=== PATIENT | female | born 1985 ===

== ENCOUNTER 2020-06-11 12:35 | Outpatient (REF) | payer OTHER, SELFPAY ==
[2020-06-11 14:04] LABS: MANUAL DIFF FLAG NO
[2020-06-11 14:12] LABS: Basophils Percent Auto 0.7 % (0-2); Eosinophils Absolute Auto 0.2 X10*3/uL (0.0-0.4); Eosinophils Percent Auto 2.7 % (0-4); Hematocrit 41.3 % (37-47); Hemoglobin 13.5 g/dl (12.0-16.0); Imm Gran Abs Auto 0.02 X10*3/uL (0.00-0.03); Imm Gran Pct Auto 0.4 % (0.0-0.4); Lymphocytes Absolute Auto 1.5 X10*3/uL (1.2-4.9); Lymphocytes Percent Auto 27.1 % (20-40); Mean Corpuscular HGB Conc 32.7 g/dl (31.0-35.0); Mean Corpuscular Hemoglobin 30.5 pg (27.0-33.0); Mean Corpuscular Volume 93.2 fL (80-98); Mean Platelet Volume 11.2 fL (9.4-12.3); Monocytes Absolute Auto 0.4 X10*3/uL (0.1-1.2); Monocytes Percent Auto 7.1 % (2-11); Neutrophils Absolute Auto 3.5 X10*3/uL (2.0-8.3); Platelet Count 255 X10*3/uL (160-400); Red Blood Count 4.43 X10*6/uL (4.20-5.50); Red Cell Distribution Width 12.9 % (11.0-16.0); White Blood Count 5.7 X10*3/uL (4.8-10.8)
[2020-06-11 14:22] LABS: Estimated Average Glucose 103 mg/dL; Hemoglobin A1c % 5.2 %
[2020-06-11 14:46] LABS: Alanine Aminotransferase 14 U/L (0-31); Albumin Level 4.3 g/dL (3.5-5.0); Alkaline Phosphatase 37 U/L (39-117); Anion Gap 11 (12-20); Aspartate Amino Transferase 13 U/L (5-31); Bilirubin Total 0.7 mg/dL (0.0-1.0); Blood Urea Nitrogen 8 mg/dL (9-16); Calcium 8.7 mg/dL (8.4-10.2); Carbon Dioxide 26 mmol/L (22-29); Chloride 106 mmol/L (96-108); Cholesterol 130 mg/dL; Estimated Glomerular Filt Rate > 60; Glucose Fasting 98 mg/dL (60-99); HDL Cholesterol 45 mg/dL; LDL Cholesterol Calculated 73 mg/dl; Potassium 4.4 mmol/L (3.3-5.1); Sodium 139 mmol/L (135-145); Total Protein 6.9 g/dL (6.5-8.0); Triglycerides 60 mg/dL
[2020-06-11 14:54] LABS: TSH reflex Free T4 2.23 uIU/mL (0.32-4.0)
[2020-06-12 08:39] LABS: SARS COV2 IgG Negative (Negative)
== END 2020-06-11 12:36 | disposition home or self-care (01) ==
LOC: HO.HMGCLDS 12:35
PROVIDERS: PCP Internal Medicine; Visit Provider Internal Medicine
DX: Z00.01 Encounter for general adult medical examination with abnormal findings (principal); Z01.84 Encounter for antibody response examination; E66.01 Morbid (severe) obesity due to excess calories; J45.20 Mild intermittent asthma, uncomplicated; Z86.32 Personal history of gestational diabetes
CPT/HCPCS: 36415; 80053; 80061; 82306; 83036; 84443; 85025; 86769

== ENCOUNTER → 2020-06-18 11:40 | Outpatient (BNVA) | payer OTHER, SELFPAY | PROVIDERS: PCP Internal Medicine; Visit Provider Advanced Practice Midwife ==

== ENCOUNTER 2020-08-30 10:07 | Outpatient (REF) | payer OTHER, SELFPAY | END 2020-08-30 10:08 | disposition home or self-care (01) | LOC: HO.LAB 10:07 | PROVIDERS: PCP Internal Medicine; Visit Provider Obstetrics & Gynecology | DX: Z30.433 Encounter for removal and reinsertion of intrauterine contraceptive device (principal) | CPT/HCPCS: 58300; 58301 ==

== ENCOUNTER 2020-11-14 09:59 | Outpatient (REF) | payer OTHER, SELFPAY ==
[2020-11-15 03:04] LABS: CT PCR NOT DETECTED (Not Detect.); NG PCR NOT DETECTED (Not Detect.)
[2020-11-15 09:44] LABS: BV Int Neg Control Negative (Negative); BV Int Pos Control Positive (Positive)
[2020-11-18 16:37] LABS: HPV mRNA E6/E7 rflx Not Detected (Not Detected)
== END 2020-11-14 10:00 | disposition home or self-care (01) ==
LOC: HO.LAB 09:59
PROVIDERS: Visit Provider Advanced Practice Midwife
DX: Z01.419 Encounter for gynecological examination (general) (routine) without abnormal findings (principal); Z11.51 Encounter for screening for human papillomavirus (HPV); Z11.3 Encounter for screening for infections with a predominantly sexual mode of transmission; Z20.2 Contact with and (suspected) exposure to infections with a predominantly sexual mode of transmission; E66.01 Morbid (severe) obesity due to excess calories; Z97.5 Presence of (intrauterine) contraceptive device
CPT/HCPCS: 87480; 87491; 87510; 87591; 87624; 87660; 88142

== ENCOUNTER 2021-01-09 16:41 | Outpatient (REF) | payer OTHER, SELFPAY ==
[2021-01-09 18:31] LABS: IDNOW Serial# 9DD0AD1C; Strep A Nucleic Acid Negative (Negative)
== END 2021-01-09 16:42 | disposition home or self-care (01) ==
LOC: HO.LAB 16:41
PROVIDERS: Visit Provider Internal Medicine
DX: J02.9 Acute pharyngitis, unspecified (principal)
CPT/HCPCS: 36415; 87651

== ENCOUNTER 2021-01-21 10:05 | Outpatient (REF) | payer OTHER, SELFPAY ==
[2021-01-22 09:54] LABS: BV Int Neg Control Negative (Negative); BV Int Pos Control Positive (Positive)
== END 2021-01-21 10:06 | disposition home or self-care (01) ==
LOC: HO.LAB 10:05
PROVIDERS: Visit Provider Advanced Practice Midwife
DX: N76.0 Acute vaginitis (principal); B96.89 Other specified bacterial agents as the cause of diseases classified elsewhere; R10.2 Pelvic and perineal pain
CPT/HCPCS: 81003; 87480; 87510; 87660; 99212

== ENCOUNTER 2021-06-03 11:41 | Outpatient (REF) | payer OTHER, SELFPAY ==
--- NOTE | ~2021-06-03 | XR_ITS ---
EXAMINATION: XR CHEST CLINICAL INFORMATION: Shortness of breath COMPARISON: None TECHNIQUE: 2 views of the chest were obtained. FINDINGS: No significant abnormality is noted involving the heart, lungs, mediastinum, bony thorax or soft tissues. XR/XR chest 2V IMPRESSION: Unremarkable examination.
== END 2021-06-03 11:42 | disposition home or self-care (01) ==
LOC: HO.HMGCX 11:41
PROVIDERS: PCP Internal Medicine; Visit Provider Internal Medicine
DX: R06.02 Shortness of breath (principal)
CPT/HCPCS: 71046

== ENCOUNTER → 2021-07-09 09:03 | Outpatient (BNVA) | payer OTHER, SELFPAY | PROVIDERS: PCP Internal Medicine; Visit Provider Nurse Practitioner Family | DX: R40.0 Somnolence (principal); R06.83 Snoring; E66.01 Morbid (severe) obesity due to excess calories; Z68.42 Body mass index [BMI] 45.0-49.9, adult | CPT/HCPCS: 99202 ==

== ENCOUNTER → 2021-08-19 09:05 | Outpatient (REF) | payer OTHER, SELFPAY | LOC: HO.SL 09:05 | PROVIDERS: PCP Internal Medicine; Visit Provider Nurse Practitioner Family | DX: E66.01 Morbid (severe) obesity due to excess calories (principal); R06.83 Snoring; R40.0 Somnolence | CPT/HCPCS: 95806 ==

== ENCOUNTER → 2021-11-10 22:06 | Outpatient (REF) | payer OTHER, SELFPAY | LOC: HO.SL 22:06 | PROVIDERS: PCP Internal Medicine; Visit Provider Nurse Practitioner Family | DX: R40.0 Somnolence (principal) | CPT/HCPCS: 95810 ==

== ENCOUNTER 2021-11-19 10:49 | Outpatient (REF) | payer OTHER, SELFPAY ==
[2021-11-19 14:28] LABS: CT PCR NOT DETECTED (Not Detect.); NG PCR NOT DETECTED (Not Detect.)
[2021-11-20 09:19] LABS: BV Int Neg Control Negative (Negative); BV Int Pos Control Positive (Positive)
== END 2021-11-19 10:50 | disposition home or self-care (01) ==
LOC: HO.LAB 10:49
PROVIDERS: Visit Provider Advanced Practice Midwife
DX: Z11.3 Encounter for screening for infections with a predominantly sexual mode of transmission (principal)
CPT/HCPCS: 87480; 87491; 87510; 87591; 87660

== ENCOUNTER 2022-03-10 09:00 | Outpatient (RCR) | payer OTHER, SELFPAY | END 2022-04-21 15:33 | disposition home or self-care (01) | LOC: HO.PT 09:00 | PROVIDERS: PCP Internal Medicine; Visit Provider Advanced Practice Midwife | DX: N81.89 Other female genital prolapse (principal) | CPT/HCPCS: 97112; 97140; 97161 ==

== ENCOUNTER 2022-11-02 12:52 | Outpatient (AMB) | payer OTHER, SELFPAY ==
--- NOTE | 2022-11-02 14:12 | AM.OFFWIN_ITS ---
Intake Vital Signs 11/02/22 14:17 BP 118/74 Blood Pressure Location Rt brachial Position Sitting Pulse 85 Pulse Source Pulse Oximeter Pulse Oximetry (%) 98 Oxygen Delivery Method Room Air Intake Visit Reasons: EP, Fall, Bilateral Ankle Pain Intake Note: patient here because she had a fall on wednesday and tried to break her fall with the other leg and then she injured the other side. she states she had swelling afterwards but swelling has gone down, the last two days it has been very painful, whenever she steps and puts pressure of her left foot it feels like pins and needles, right foot is bothersome but not as bad as the left foot. Patient Tobacco Use Status: Never used Tobacco Allergies cat dander Allergy (Mild, Verified 11/02/22 14:51) unknown dog dander Allergy (Mild, Verified 11/02/22 14:51) unknown Seasonal Allergies Allergy (Mild, Verified 11/02/22 14:51) sneezing, runny nose Medication List - Last Reconciled 11/02/22 by Manoj Ruiz MD albuterol sulfate 90 mcg/actuation 1 inh inhalation QID PRN levonorgestrel (Mirena) intrauterine montelukast 10 mg PO DAILY sertraline 75 mg (1.5 x 50 mg) PO DAILY 30 days Do you need a note to return to daycare/school/sports/work: No HPI EP, Fall, Bilateral Ankle Pain HPI Details 37-year-old female presents to the office for a sick visit. Patient was at a green party over the weekend and was jumping. She accidentally twisted both her ankles. The left hurts more than the right ankle. She is walking with a limp. [facility] Medical History Anxiety and depression Difficulty sleeping Encounter for general adult medical examination with abnormal findings Encounter for screening laboratory testing for COVID-19 virus in asymptomatic patient Gestational diabetes Mild intermittent asthma Morbid obesity Plantar wart of right foot Surgical History Hx of hernia repair [place] teeth extracted Family History Father Hx of diabetes mellitus Family hx of hypertension Mental health disorder Mother Hx of diabetes mellitus Hypothyroidism Mental health disorder Sister Hx of diabetes mellitus Hypothyroidism Maternal Grandfather Mental health disorder Maternal Grandmother Mental health disorder Social History Housing: House Alcohol intake: current Alcohol intake frequency: a few times a month Patient Tobacco Use Status: Never used Tobacco e-Cigarette/Vaping Use: Never Used service: No Current occupational status: employed Gender identity: Female Female Reproductive History Menstrual Age of Menarche: 14 Physical Exam Vital Signs: Last Vital Signs Pulse 85 11/02/22 14:17 BP 118/74 11/02/22 14:17 Pulse Ox 98 11/02/22 14:17 Oxygen Delivery Method Room Air 11/02/22 14:17 Extrem Other: Right and left ankles: Left ankle is swollen. Pain on inversion and eversion. Right ankle appears normal. Full range of motion. Assessment & Plan Assessment & Plan Orders: Orders XR ankle LT min 3V Today S93.402A - Sprain of unspecified ligament of left ankle, initial encounter Patient Instructions: X-rays personally reviewed by me. Patient was advised anti-inflammatories. Keep the foot elevated. Note for work given. Coding Level of Care Code Est Pt Level 4 (35371) Diagnoses
[2022-11-02 14:17] VITALS: BP 118/74; PULSE 85; O2SAT 98
== END 2022-11-02 15:09 | disposition home or self-care (01) ==
PROVIDERS: PCP Internal Medicine; Visit Provider Internal Medicine
DX: M25.571 Pain in right ankle and joints of right foot (principal); M25.572 Pain in left ankle and joints of left foot
CPT/HCPCS: 99214

== ENCOUNTER 2022-11-02 14:48 | Outpatient (REF) | payer OTHER, SELFPAY ==
--- NOTE | ~2022-11-02 | XR_ITS ---
EXAMINATION: XR ANKLE, LEFT CLINICAL INFORMATION: Sprain of unspecified ligament of left ankle, initial encounter COMPARISON: None available. TECHNIQUE: AP, lateral, and mortise views of the left ankle. FINDINGS: There is marked soft tissue swelling over the lateral malleolus. No fracture. Alignment is anatomic. No erosions. Joint spaces are maintained. Large posterior plantar calcaneal spur is seen. XR/XR ankle LT min 3V IMPRESSION: No acute bony abnormality.
== END 2022-11-02 14:49 | disposition home or self-care (01) ==
LOC: HO.HMGCX 14:48
PROVIDERS: PCP Internal Medicine; Visit Provider Internal Medicine
DX: S93.402A Sprain of unspecified ligament of left ankle, initial encounter (principal)
CPT/HCPCS: 73610

== ENCOUNTER 2022-12-02 08:09 | Outpatient (AMB) | payer OTHER, SELFPAY ==
[2022-12-02 08:13] VITALS: BP 136/82; PULSE 105; TEMP 36.4; O2SAT 98; BMI 42.3
--- NOTE | 2022-12-02 08:13 | MHC.OFFWIV ---
Intake Vital Signs 12/02/22 08:13 Height 5 ft 2 in Weight 231 lb 4 oz BMI 42.3 BP 136/82 Blood Pressure Location Rt brachial Position Sitting Pulse 105 H Pulse Source Pulse Oximeter Temp 97.6 F Temp Source Oral Pulse Oximetry (%) 98 Oxygen Delivery Method Room Air Intake Visit Reasons: EP ?Cyst on Anus Intake Note: Pt is here today for possible cyst on anus. Ptstates its a burning feeling occurred 4 Days ago. Patient Tobacco Use Status: Never used Tobacco Allergies cat dander Allergy (Mild, Verified 12/02/22 08:15) unknown dog dander Allergy (Mild, Verified 12/02/22 08:15) unknown Seasonal Allergies Allergy (Mild, Verified 12/02/22 08:15) sneezing, runny nose HPI EP ?Cyst on Anus HPI Details 37-year-old female presents to the office for a sick visit. She is reporting some discomfort in the anal canal. No bleeding or mucus. [facility] Medical History Anxiety and depression Difficulty sleeping Encounter for general adult medical examination with abnormal findings Encounter for screening laboratory testing for COVID-19 virus in asymptomatic patient Gestational diabetes Mild intermittent asthma Morbid obesity Plantar wart of right foot Surgical History Hx of hernia repair [place] teeth extracted Family History Father Hx of diabetes mellitus Family hx of hypertension Mental health disorder Mother Hx of diabetes mellitus Hypothyroidism Mental health disorder Sister Hx of diabetes mellitus Hypothyroidism Maternal Grandfather Mental health disorder Maternal Grandmother Mental health disorder Social History Housing: House Alcohol intake: current Alcohol intake frequency: a few times a month Patient Tobacco Use Status: Never used Tobacco e-Cigarette/Vaping Use: Never Used service: No Current occupational status: employed Gender identity: Female Female Reproductive History Menstrual Age of Menarche: 14 Physical Exam Vital Signs: Last Vital Signs Temp 97.6 F 12/02/22 08:13 Pulse 105 H 12/02/22 08:13 BP 136/82 12/02/22 08:13 Pulse Ox 98 12/02/22 08:13 Oxygen Delivery Method Room Air 12/02/22 08:13 BMI result Body Mass Index 42.3 Other: SC exam: Minimal swelling outside the anal verge. Slightly tender to touch. Examination was done in the presence of a female medical pathology teacher. Assessment & Plan Assessment & Plan (1) Thrombosed external hemorrhoid: Code(s): K64.5 - Perianal venous thrombosis Plan: Perineal application of hydrocortisone cream. Symptoms should subside. Medications: New hydrocortisone 2.5% (Anusol-HC) 1 appl [place] BID-QID PRN 30 grams 0RF hemorrhoids Coding Level of Care Code Est Pt Level 3 (14871) Diagnoses Thrombosed external hemorrhoid K64.5
== END 2022-12-02 09:04 | disposition home or self-care (01) ==
LOC: HO.HMGWI 08:09
PROVIDERS: PCP Internal Medicine
DX: K64.5 Perianal venous thrombosis (principal)
CPT/HCPCS: 99213

== ENCOUNTER 2023-03-19 08:48 | Outpatient (AMB) | payer OTHER, SELFPAY ==
--- NOTE | 2023-03-19 09:41 | MHC.OFFWIV ---
Intake Vital Signs 03/19/23 09:42 Height 5 ft 2 in Weight 231 lb BMI 42.2 BP 122/80 Blood Pressure Location Rt brachial Position Sitting Pulse 99 Pulse Source Pulse Oximeter Temp 97.1 F Temp Source Temporal Artery Scan Pulse Oximetry (%) 100 Oxygen Delivery Method Room Air Intake Visit Reasons: EP, cough, sore throat ([phone]) Intake Note: Pt is here c/o cough and sore throat. Patient Tobacco Use Status: Never used Tobacco Allergies cat dander Allergy (Mild, Verified 03/19/23 09:41) unknown dog dander Allergy (Mild, Verified 03/19/23 09:41) unknown Seasonal Allergies Allergy (Mild, Verified 03/19/23 09:41) sneezing, runny nose Do you need a note to return to daycare/school/sports/work: No HPI HPI Comments History of Present Illness Details This is a 37-year-old female who presents to the office today for sick visit. Patient complaining of a persistent cough x3 weeks following a positive COVID test approximately 1 month ago. She states this cough is dry without sputum production. She reports some mild shortness of breath and some mild wheezing. She has a history of asthma and has been out of her inhalers. She also reports a sore throat and voice hoarseness x 3-4 days. She reports odynophagia but denies dysphagia. She denies any fevers or chills. [facility] Medical History Anxiety and depression Difficulty sleeping Encounter for general adult medical examination with abnormal findings Encounter for screening laboratory testing for COVID-19 virus in asymptomatic patient Gestational diabetes Mild intermittent asthma Morbid obesity Plantar wart of right foot Surgical History Hx of hernia repair [place] teeth extracted Family History Father Hx of diabetes mellitus Family hx of hypertension Mental health disorder Mother Hx of diabetes mellitus Hypothyroidism Mental health disorder Sister Hx of diabetes mellitus Hypothyroidism Maternal Grandfather Mental health disorder Maternal Grandmother Mental health disorder Social History Housing: House Alcohol intake: current Alcohol intake frequency: a few times a month Patient Tobacco Use Status: Never used Tobacco e-Cigarette/Vaping Use: Never Used service: No Current occupational status: employed Gender identity: Female Female Reproductive History Menstrual Age of Menarche: 14 Review of Systems Const All systems reviewed & are unremarkable except as noted in HPI and below Reports no additional complaints Eyes Reports no additional complaints ENT Reports no additional complaints Card Reports no additional complaints Resp Reports no additional complaints GI Reports no additional complaints Reports no additional complaints Musc Reports no additional complaints Skin/Breast Reports system reviewed and no additional complaints, except as documented Neuro Reports no additional complaints Psych Reports no additional complaints Endo Reports no additional complaints Philippe/Lymph Reports no additional complaints Aller/Immun Reports no additional complaints Physical Exam Vital Signs: Last Vital Signs Temp 97.1 F 03/19/23 09:42 Pulse 99 03/19/23 09:42 BP 122/80 03/19/23 09:42 Pulse Ox 100 03/19/23 09:42 Oxygen Delivery Method Room Air 03/19/23 09:42 BMI result Body Mass Index 42.2 Const Other: Vital signs reviewed. Constitutional: Non-toxic appearing. No acute distress. Well-developed and well-nourished. HEENT: Normocephalic and atraumatic. Tympanic membranes without erythema, edema, or bulging bilaterally. External auditory canals without erythema or edema bilaterally. Moist mucous membranes. No pharyngeal erythema or exudates. Skin: Warm and dry. No rashes or lesions noted. Neck: Full and painless range of motion. No cervical lymphadenopathy. Cardio: Regular rate and rhythm. No murmurs, gallops, or rubs. No lower extremity edema. No JVD. Pulmonary: No respiratory distress. No accessory muscle usage. Scant end-expiratory wheezing throughout. Gastrointestinal: Soft, nontender, and nondistended in all 4 quadrants. Normoactive bowel sounds in all 4 quadrants. Genitourinary: No CVA tenderness. Musculoskeletal: Normal range of motion in joints throughout the body. No deformity or other signs of injury. Neuro: Alert and oriented x4. Cranial nerves 2-12 grossly intact. No focal deficits appreciated. Psych: Normal mood and affect. Assessment & Plan Assessment & Plan (1) Acute asthmatic bronchitis: Code(s): J45.909 - Unspecified asthma, uncomplicated (2) Acute laryngitis: Code(s): J04.0 - Acute laryngitis Plan This is a 37-year-old female presenting to the office complaining of a persistent dry cough x3 weeks following a positive COVID test as well as sore throat and hoarseness x3 days. On physical examination, she has no posterior pharyngeal erythema or edema and she has no unilateral tonsillar swelling or evidence of peritonsillar abscess/mass/cellulitis. She has scant expiratory wheezing but she is otherwise in no acute respiratory distress without tripodding or stridor. History and physical most consistent with a post viral acute asthmatic bronchitis and acute laryngitis. Patient has been sent home on p.o. prednisone 40 mg daily x5 days, p.o. azithromycin 500 mg today followed by 250 mg daily x4 days, and a refill of her albuterol and fluticasone inhalers. Patient's vital signs are stable, physical exam is otherwise benign, and patient is overall nontoxic appearing. Recommended symptomatic management including rest, increased fluids, advil/tylenol for pain/fever, salt water gargles, hot tea with honey, and over the counter throat lozenges. Patient advised to follow up here or go to the emergency room for worsening/persistent symptoms. Patient verbalizes understanding and is in agreement the plan. Medications: New prednisone 40 mg (2 x 20 mg) PO DAILY 10 tabs 0RF azithromycin For 250 mg dose pack: take 500 mg today (day 1), then 250 mg for 4 days (days 2-5) PO 6 tabs 0RF fluticasone propionate 100 mcg/actuation (Flovent Diskus) 1 inh inhalation BID 60 ea 0RF Refilled albuterol sulfate 90 mcg/actuation 1 inh inhalation QID PRN 6.7 grams 1RF shortness of breath or wheezing Coding Level of Care Code Est Pt Level 3 (57433) Diagnoses Acute asthmatic bronchitis J45.909 Acute laryngitis J04.0
[2023-03-19 09:42] VITALS: BP 122/80; PULSE 99; TEMP 36.2; O2SAT 100; BMI 42.2
== END 2023-03-19 10:41 | disposition home or self-care (01) ==
PROVIDERS: PCP Internal Medicine; Visit Provider Physician Assistant Medical
DX: J45.909 Unspecified asthma, uncomplicated (principal); J04.0 Acute laryngitis
CPT/HCPCS: 99213

== ENCOUNTER 2023-04-16 10:16 | Outpatient (REF) | payer OTHER, SELFPAY ==
[2023-04-21 12:43] LABS: CT PCR NOT DETECTED (Not Detect.); NG PCR NOT DETECTED (Not Detect.)
== END 2023-04-16 10:17 | disposition home or self-care (01) ==
LOC: HO.LNP 10:16
PROVIDERS: PCP Internal Medicine; Visit Provider Advanced Practice Midwife
DX: Z01.419 Encounter for gynecological examination (general) (routine) without abnormal findings (principal); N92.1 Excessive and frequent menstruation with irregular cycle; N81.89 Other female genital prolapse; E66.01 Morbid (severe) obesity due to excess calories; Z68.41 Body mass index [BMI] 40.0-44.9, adult; Z20.2 Contact with and (suspected) exposure to infections with a predominantly sexual mode of transmission; Z11.3 Encounter for screening for infections with a predominantly sexual mode of transmission; Z97.5 Presence of (intrauterine) contraceptive device
CPT/HCPCS: 0353U; 99395

== ENCOUNTER 2023-04-16 10:16 | Outpatient (AMB) | payer OTHER, SELFPAY ==
--- NOTE | 2023-04-16 10:18 | MHC.OFFVIS ---
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 Intake Note: periods are long lasting Associate Account Director Required: No Information Interpreted: non-clinical & clinical Side Hemmer: Side Hemmer Present (Kristin) Allergies cat dander Allergy (Mild, Verified 04/16/23 10:20) unknown dog dander Allergy (Mild, Verified 04/16/23 10:20) unknown Seasonal Allergies Allergy (Mild, Verified 04/16/23 10:20) sneezing, runny nose Medication List - Last Reconciled 04/16/23 by Nimisha Conrad CNM albuterol sulfate 90 mcg/actuation 1 inh inhalation QID PRN azithromycin For 250 mg dose pack: take 500 mg today (day 1), then 250 mg for 4 days (days 2-5) PO fluticasone propionate 110 mcg/actuation (Flovent HFA) 1 puff inhalation BID hydrocortisone 2.5% (Anusol-HC) 1 appl [place] BID-QID PRN levonorgestrel (Mirena) intrauterine montelukast 10 mg PO DAILY sertraline 75 mg (1.5 x 50 mg) PO DAILY 30 days Is last menstrual period known: Yes Last menstrual period: 03/26/23 Post menopausal: No HPI 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 She does seem to get long jann periods but they are not heavy and she does have spotting in between so she does end up wearing panty liners to protect her clothing because of that she feels she is doing very well this year she has been in a relationship for about a year and she has been getting lots of tattoos in this year she has got about 10 new ones. She shares custody with her ex for her children. [facility] Medical History Anxiety and depression Difficulty sleeping Plantar wart of right foot Encounter for screening laboratory testing for COVID-19 virus in asymptomatic patient Encounter for general adult medical examination with abnormal findings Morbid obesity Gestational diabetes Mild intermittent asthma Surgical History [place] teeth extracted Hx of hernia repair Family History Father Hx of diabetes mellitus Family hx of hypertension Mental health disorder Mother Hx of diabetes mellitus Hypothyroidism Mental health disorder Sister Hx of diabetes mellitus Hypothyroidism Maternal Grandfather Mental health disorder Maternal Grandmother Mental health disorder Social History Housing: House Alcohol intake: current Alcohol intake frequency: a few times a month Patient Tobacco Use Status: Never used Tobacco e-Cigarette/Vaping Use: Never Used service: No Current occupational status: employed Gender identity: Female Female Reproductive History Menstrual Age of Menarche: 14 Duration of menses: >10 days Date of last menstrual period: 03/26/23 control method: progestin IUCD Total pregnancies: 2 Full term: 2 Number of Living Children: 2 Date of last pap smear: 11/15/20 (negative) Physical Exam Vital Signs: BMI result Body Mass Index 42.1 Const General: healthy appearing, comfortable, no acute distress, well developed and alert Nutritional Appearance: average body habitus Orientation/consciousness: patient oriented x3 Limitations: no limitations HEENT Head: Yes normocephalic Neck Neck: Yes normal visual inspection Thyroid: Thyroid normal Chest Chest palpation & inspection: normal inspection of the chest Breast/axilla inspection: normal inspection of the breasts and normal inspection of the axillae Breast/axilla palpation: normal palpation of the breasts and normal palpation of the axillae Resp Effort & Inspection: normal respiratory effort GI Inspection: Yes normal to inspection, No Abdominal wall edema and No distended Palpation (GI): Soft to palpation and nontender Other: Normal external exam vagina pink and moist there is some mucousy spotting consistent with a Mirena IU S and some cervical friability multiparous cervix with Mirena strings easily visible cervix long close thick mobile firm uterus nontender midposition patient has weak tone with Kegel but was able to do a couple of Kegel's with great concentrated effort reviewed Kegel exercise and recommend she do them several times a day as she learned in physical therapy I did also offer to re refer her but she is going to try to practice which she was given General: Yes bladder normal to palpation External Female Exam: normal external appearance and normal appearance of the urethra Speculum Exam - Vagina: normal appearance of the vagina, normal palpation and normal vaginal discharge Speculum Exam - Cervix: normal appearance of the cervix, normal palpation and nontender Bimanual exam- vagina & uterus: normal bimanual exam, normal palpation, uterine size normal, bladder normal to palpation, consistency normal, normal palpation, uterine mobility normal, uterine shape normal, No Cervical tenderness present, non-tender and no cervical motion tenderness Bimanual Exam- Adnexa, other: normal adnexae, no masses, normal and No adnexal tenderness Neuro General: patient oriented x3 Assessment & Plan Assessment & Plan (1) Presence of 52 mg levonorgestrel-releasing intrauterine device (IUD): Code(s): Z97.5 - Presence of (intrauterine) contraceptive device (2) Pelvic floor weakness: Code(s): N81.89 - Other female genital prolapse (3) Potential exposure to STD: Code(s): Z20.2 - Contact with and (suspected) exposure to infections with a predominantly sexual mode of transmission (4) Obesity, morbid, BMI 40.0-49.9: Code(s): E66.01 - Morbid (severe) obesity due to excess calories (5) Well woman exam with routine gynecological exam: Code(s): Z01.419 - Encounter for gynecological examination (general) (routine) without abnormal findings (6) Breakthrough bleeding associated with intrauterine device (IUD): Code(s): N92.1 - Excessive and frequent menstruation with irregular cycle; Z97.5 - Presence of (intrauterine) contraceptive device (7) Encounter for preconception consultation: Code(s): Z31.69 - Encounter for other general counseling and advice on procreation Plan -----Discussed in this visit the following: healthy balanced diet, regular and consistent exercise, getting recommended health screens, doing the best she can for her particular health concerns, kegel exercises, pap smear screening and followup recommendations, mammography screening and SBE, normal changes in cycles in her life stage--- .----I reviewed available options for Control Methods and their associated side effect profiles. In particular, we discussed the method most of interest to her. I reviewed all the methods that she has used reviewed the irregular bleeding on her Mirena and the possibilities for management including removal and trying other methods such is progestin only pills or ParaGard IUD but she is for now is going to stick with this and think about her consideration for of future . We discussed at 37 and also increased risks of issues going forward as well as conception after 35 and increased risks of Down syndrome and miscarriage in complications. Discussed return to her baseline fertility an menses drill cycle after removal of the Mirena and that it can take anywhere from immediate to year though at the same time after age 37 there can be some diminishing fertility moving forward as well. She is taking multivitamins as well as other vitamins. She is endeavoring to eat very well and lose weight it in a natural way using a ketogenic diet and exercise. She is losing overall though she has gained a little bit at [place]. She is going to get back on track after the holidays. For now she will keep the Mirena in and consider options going forward the bleeding that she gets for 7-10 days is not very heavy at all at most she wears a couple of pads in a day at its heaviest she does get the spotting in between. She has never had an abnormal Pap smear and no concerns about STDs but we did testing for STIs her last Pap smear was in 2020 and it was negative in normal so we did not have an indication to do another 1 today. We will see her in 1 year Also reviewed any other potential issues she does have some thinning of her hair on her right episcopalian more than on her left she has says it was from pulling her hair very tight as a teenager and it has been discussed with her other care providers and it she does not have alopecia areata. Did discuss possible autoimmune connections and thyroid connections if that were the case but it is not. Orders: Orders Bacterial Vaginosis Panel Today Z20.2 - Contact with and (suspected) exposure to infections with a predominantly sexual mode of transmission CT NG by PCR Today Z20.2 - Contact with and (suspected) exposure to infections with a predominantly sexual mode of transmission Coding Level of Care Code Est Pt Prev Care 18-39y(32742) Diagnoses Presence of 52 mg levonorgestrel-releasing intrauterine device (IUD) Z97.5 Pelvic floor weakness N81.89 Potential exposure to STD Z20.2 Obesity, morbid, BMI 40.0-49.9 E66.01 Well woman exam with routine gynecological exam Z01.419 Breakthrough bleeding associated with intrauterine device (IUD) N92.1; Z97.5 Encounter for preconception consultation Z31.69
[2023-04-16 10:19] VITALS: BP 130/82; BMI 42.1
== END 2023-04-16 11:19 | disposition home or self-care (01) ==
LOC: HO.HWS 10:16
PROVIDERS: PCP Internal Medicine; Visit Provider Advanced Practice Midwife
DX: Z01.419 Encounter for gynecological examination (general) (routine) without abnormal findings (principal); Z97.5 Presence of (intrauterine) contraceptive device; N81.89 Other female genital prolapse; Z20.2 Contact with and (suspected) exposure to infections with a predominantly sexual mode of transmission; E66.01 Morbid (severe) obesity due to excess calories; N92.1 Excessive and frequent menstruation with irregular cycle; Z31.69 Encounter for other general counseling and advice on procreation
CPT/HCPCS: 99395

== ENCOUNTER 2023-09-23 14:36 | Outpatient (AMB) | payer OTHER, SELFPAY ==
--- NOTE | 2023-09-23 14:38 | MHC.PC.OV ---
Vital Signs 09/23/23 14:39 Height 5 ft 2 in Weight 242 lb BMI 44.3 BP 114/76 Blood Pressure Location Rt brachial Position Sitting Pulse 72 Pulse Source Pulse Oximeter Pulse Oximetry (%) 98 Oxygen Delivery Method Room Air Intake Visit Reasons: Pain right side of hips Intake Note: Pt here c/o rt hip pain Allergies cat dander Allergy (Mild, Verified 10/28/23 02:44) unknown dog dander Allergy (Mild, Verified 10/28/23 02:44) unknown Seasonal Allergies Allergy (Mild, Verified 10/28/23 02:44) sneezing, runny nose Medication List - Last Reconciled 10/28/23 by Emily Little MD albuterol sulfate 90 mcg/actuation 1 inh inhalation QID PRN fluticasone propionate 110 mcg/actuation (Flovent HFA) 1 puff inhalation BID levonorgestrel (Mirena) intrauterine montelukast 10 mg PO DAILY sertraline 50 mg PO DAILY 30 days Tobacco use date assessed: 09/23/23 Dental Screening Dental Screen Date: 09/23/23 Did you have a dental visit in the last 12 months?: Yes Did you have a dental problem in the last 6 months where you did not have access to dental care?: No Was dental information given to patient?: Patient has dentist HPI Pain right side of hips HPI Details 38-year-old lady here today complaining of recurrent pain in her right hip joint, nonradiating., aggravated by prolonged walking standing going up and down stairs. She has lost weight in the past but started gaining it back again. No history of trauma or strenuous exertion. Has just been taking [id number] NSAIDs and Tylenol which affords only temporary relief. No accompanying urinary or stool incontinence, no weakness in lower extremities, no numbness or tingling. [facility] Medical History (Updated 09/23/23 @ 15:11 by Emily Little MD) Chronic right sacroiliac joint pain Anxiety and depression Difficulty sleeping Plantar wart of right foot Encounter for screening laboratory testing for COVID-19 virus in asymptomatic patient Encounter for general adult medical examination with abnormal findings Morbid obesity Gestational diabetes Mild intermittent asthma Surgical History [place] teeth extracted Hx of hernia repair Family History Father Hx of diabetes mellitus Family hx of hypertension Mental health disorder Mother Hx of diabetes mellitus Hypothyroidism Mental health disorder Sister Hx of diabetes mellitus Hypothyroidism Maternal Grandfather Mental health disorder Maternal Grandmother Mental health disorder Social History Housing: House Alcohol intake: current Alcohol intake frequency: a few times a month Patient Tobacco Use Status: Never used Tobacco e-Cigarette/Vaping Use: Never Used service: No Current occupational status: employed Current occupational exposures/hazards: No Gender identity: Female Female Reproductive History Menstrual Age of Menarche: 14 Questionnaire PHQ-9 Over the last 2 weeks, how often have you been bothered by any of the following problems? 1. Little interest or pleasure in doing things: not at all 2. Feeling down, depressed, or hopeless: not at all 3. Trouble falling or staying asleep, or sleeping too much: not at all 4. Feeling tired or having little energy: not at all 5. Poor appetite or overeating: not at all 6. Feeling bad about yourself - or that you are a failure or have let yourself or your family down: not at all 7. Trouble concentrating on things, such as reading the newspaper or watching television: not at all 8. Moving or speaking so slowly that other people could have noticed. Or the opposite - being so fidgety or restless that you have been moving around a lot more than usual: not at all 9. Thoughts that you would be better off or of hurting yourself in some way: not at all Total score: 0 Depression Screening Interpretation: Negative Depression Screening Done: Yes 93618 - PHQ-9 Billing: Yes Source: Developed by Drs. Nick Mata, Jenniffer Bangura, Damon Olvera and colleagues, with an educational alfred from [employer]. Thrive Questionnaire Date Thrive assessed: 09/23/23 I am a: Patient What is your living situation today?: I have a steady place to live Within the past 12 months, did the food you bought not last and you didn't have the money to get more?: Never true Within the past 12 months, did you worry whether your food would run out before you got money to buy more?: Never true Do you have trouble paying for medicines?: No Do you have trouble getting transportation to medical appointments?: No Do you have trouble paying your heating and electricity bill?: No Do you have trouble taking care of your child, family member or friend?: No Do you have trouble with day-to-day activities such as bathing, preparing meals, shopping, managing finances, etc.?: No Are you currently unemployed and looking for a job?: No Are you interested in more education?: No Please select the resources that you would like help with: None Currently or been in a relationship where the following occur: no concerns reported THRIVE Score: 0 AUDIT C Alcohol Use Questionnaire (AUDIT-C) 1. How often do you have a drink containing alcohol?: 2-4 times a month 2. How many drinks containing alcohol do you have on a typical day when you are drinking?: 3 or 4 3. How often do you have six or more drinks on one occasion?: Never Total Score: 3 Score Reviewed/Action Taken: Yes TOYA-7 AMB Questionnaire TOYA-7 Date TOYA - 7 assessed: 09/23/23 Feeling nervous, anxious, or on edge: 1 = Several days Not being able to stop or control worryin = Several days Worrying too much about different things: 2 = More than half the days Trouble relaxin = Not at all Being so restless that it is hard to sit still: 0 = Not at all Becoming easily annoyed or irritable: 0 = Not at all Feeling afraid as if something awful might happen: 1 = Several days Total TOYA-7 score (0-4 normal; 5-9 mild; 10-14 moderate; 15-21 severe): 5 Source: Developed by Drs. Nick Mata, Jenniffer Bangura, Damon Olvera and colleagues, with an educational alfred from [employer]. TOYA-7 Assessment Billing TOYA-7 Assessment Tool: TOYA-7 Assessment 74786 Review of Systems Const Denies fever(s), Denies headache(s) and Denies weakness Eyes Denies change in vision ENT Denies dizziness, Denies headache(s), Denies nasal congestion, Denies nasal discharge and Denies sore throat Card Denies chest pain, Denies lightheadedness, Denies palpitations and Denies dyspnea Resp Denies chest congestion, Denies cough, Denies dyspnea and Denies wheezing GI Denies abdominal pain, Denies change in bowel habits and Denies heartburn Denies urinary frequency, Denies dysuria and Denies urinary urgency Musc Reports as per HPI Neuro Denies dizziness, Denies headache(s) and Denies weakness Psych Reports no additional complaints Endo Denies polydipsia, Denies polyuria and Denies palpitations Philippe/Lymph Reports no additional complaints Aller/Immun Denies wheezing Physical exam (Primary Care) Vital Signs: Last Vital Signs Pulse 72 09/23/23 14:39 BP 114/76 09/23/23 14:39 Pulse Ox 98 09/23/23 14:39 Oxygen Delivery Method Room Air 09/23/23 14:39 BMI result Body Mass Index 44.3 BMI Assessment/Plan discussion: High BMI High, discussed plan: lifestyle, weight reduction, dietary and physical activity Tobacco/Smoking Status: Tobacco use Status Tobacco use date assessed 09/23/23 09/23/23 14:50 Patient Tobacco Use Status Never used Tobacco 09/23/23 14:50 e-Cigarette/Vaping Use Never Used 09/23/23 14:50 PHQ-9: PHQ-9 Score PHQ-9: Total score 0 09/23/23 15:17 Depression Screening Interpretation: Negative Thrive Assessment: Date of Thrive Assessment Date Thrive assessed 09/23/23 09/23/23 14:50 Currently or been in a relationship where the following occur: no concerns reported Const General: comfortable, no acute distress and alert Nutritional Appearance: obese morbidly obese Orientation/consciousness: patient oriented x3 Eyes General: appearance normal, both eyes and all related structures Neck Neck: Yes full ROM, Yes no lymphadenopathy and Yes supple Thyroid: Thyroid normal Resp Auscultation: clear to auscultation bilaterally Cardio Other: S1-S2 present regular rate and rhythm GI Palpation (GI): Soft to palpation, nontender and no guarding Auscultation: normal bowel sounds Back/Spine/Pelvis Back: No back tenderness Skin Other: Raised lesion on plantar aspect of right foot Neuro General: patient oriented x3 Extrem General: Yes full ROM, Yes no joint enlargement, Yes no pedal edema, Yes no calf tenderness and Yes normal gait Psych Appearance: grossly normal and well kempt Mental Status: mental status grossly normal Speech and movement: Normal speech and movement present Affect: normal affect Attitude: cooperative Thought process: Normal thought process present Assessment and Plan Assessment & Plan (1) Chronic right sacroiliac joint pain: Code(s): M53.3 - Sacrococcygeal disorders, not elsewhere classified; G89.29 - Other chronic pain Plan: X-ray of right hip and pelvis were, take ibuprofen as needed, weight loss strongly recommend (2) History of vitamin D deficiency: Code(s): Z86.39 - Personal history of other endocrine, nutritional and metabolic disease Plan: Ordered vitamin-D level check (3) History of gestational diabetes: Code(s): Z86.32 - Personal history of gestational diabetes Plan: Basic metabolic panel and hemoglobin A1c ordered Orders: Orders XR hip RT w PEL1V 09/23/23 M53.3 - Sacrococcygeal disorders, not elsewhere classified, G89.29 - Other chronic pain Hemoglobin A1c 09/23/23 Z13.1 - Encounter for screening for diabetes mellitus, O24.410 - Gestational diabetes mellitus in , diet controlled, Z86.39 - Personal history of other endocrine, nutritional and metabolic disease Basic Metabolic Panel Fasting 09/23/23 Z13.1 - Encounter for screening for diabetes mellitus, O24.410 - Gestational diabetes mellitus in , diet controlled, Z86.39 - Personal history of other endocrine, nutritional and metabolic disease Vitamin D 25-OH Total 09/23/23 Z13.1 - Encounter for screening for diabetes mellitus, O24.410 - Gestational diabetes mellitus in , diet controlled, Z86.39 - Personal history of other endocrine, nutritional and metabolic disease Coding Level of Care Code Est Pt Level 4 (09797) Diagnoses Chronic right sacroiliac joint pain M53.3; G89.29 History of vitamin D deficiency Z86.39 History of gestational diabetes Z86.32 Additional Codes TOYA-7 Assessment Billing - TOYA-7 Assessment Tool: TOYA-7 Assessment 36014 ([id number])
[2023-09-23 14:39] VITALS: BP 114/76; PULSE 72; O2SAT 98; BMI 44.3
== END 2023-09-23 15:16 | disposition home or self-care (01) ==
PROVIDERS: PCP Internal Medicine; Visit Provider Internal Medicine
DX: M53.3 Sacrococcygeal disorders, not elsewhere classified (principal); G89.29 Other chronic pain; Z86.39 Personal history of other endocrine, nutritional and metabolic disease; Z86.32 Personal history of gestational diabetes
CPT/HCPCS: 99214

== ENCOUNTER 2023-11-13 10:19 | Outpatient (REF) | payer OTHER, SELFPAY ==
--- NOTE | ~2023-11-13 | XR_ITS ---
EXAMINATION: XR HIP, RIGHT CLINICAL INFORMATION: Sacrococcygeal disorders, not elsewhere classified. COMPARISON: None available. TECHNIQUE: AP view of the pelvis and AP and frog-leg lateral views of the right hip. FINDINGS: Mild arthrosis in the right hip is characterized by subtle cephalad joint space narrowing and small marginal acetabular osteophytes. Subtle lucency at the acetabular roof may correspond to subchondral cystic change. Left hip joint appears relatively well-preserved. SI joints and pubic symphysis are unremarkable. Imaged portion of the sacrum and coccyx are unremarkable. IUD is in place. XR/XR hip RT w PEL1V IMPRESSION: Mild osteoarthrosis in the right hip.
[2023-11-13 11:54] LABS: Anion Gap 12 (12-20); Blood Urea Nitrogen 13 mg/dL (9-16); Calcium 9.2 mg/dL (8.4-10.2); Carbon Dioxide 25 mmol/L (22-29); Chloride 108 mmol/L (96-108); Estimated Glomerular Filt Rate > 60; Glucose Fasting 99 mg/dL (60-99); Potassium 4.4 mmol/L (3.3-5.1); Sodium 141 mmol/L (135-145)
[2023-11-13 11:55] LABS: Estimated Average Glucose 103 mg/dL; Hemoglobin A1c % 5.2 % (<6.0)
[2023-11-13 12:00] LABS: Vitamin D 25-OH Total 39.6 ng/mL (>30)
== END 2023-11-13 10:20 | disposition home or self-care (01) ==
LOC: HO.HMGCX 10:19
PROVIDERS: PCP Internal Medicine; Visit Provider Internal Medicine
DX: Z13.1 Encounter for screening for diabetes mellitus (principal); M16.11 Unilateral primary osteoarthritis, right hip; G89.29 Other chronic pain; M53.3 Sacrococcygeal disorders, not elsewhere classified; Z86.39 Personal history of other endocrine, nutritional and metabolic disease
CPT/HCPCS: 36415; 73502; 80048; 82306; 83036

== ENCOUNTER 2024-04-18 09:23 | Outpatient (REF) | payer OTHER, SELFPAY ==
[2024-04-20 09:17] LABS: HPV 16,18/45 See PAP report
== END 2024-04-18 09:24 | disposition home or self-care (01) ==
LOC: HO.LNP 09:23
PROVIDERS: PCP Internal Medicine; Visit Provider Advanced Practice Midwife
DX: Z01.419 Encounter for gynecological examination (general) (routine) without abnormal findings (principal); Z31.69 Encounter for other general counseling and advice on procreation; N81.89 Other female genital prolapse; E66.01 Morbid (severe) obesity due to excess calories; Z68.42 Body mass index [BMI] 45.0-49.9, adult; Z97.5 Presence of (intrauterine) contraceptive device; Z86.32 Personal history of gestational diabetes; Z20.2 Contact with and (suspected) exposure to infections with a predominantly sexual mode of transmission
CPT/HCPCS: 0352U; 87491; 87591; 87624; 88175; 99395; 99459

== ENCOUNTER 2024-04-18 09:23 | Outpatient (AMB) | payer OTHER, SELFPAY ==
--- NOTE | 2024-04-18 09:26 | A.OFFVIS_ITS ---
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 Taximeter Repairer Required: No Taximeter Repairer Services: Taximeter Repairer Present Information Interpreted: clinical only Strawberry Grower: Strawberry Grower Present Allergies cat dander Allergy (Mild, Verified 04/18/24 09:33) unknown dog dander Allergy (Mild, Verified 04/18/24 09:33) unknown Seasonal Allergies Allergy (Mild, Verified 04/18/24 09:33) sneezing, runny nose Medication List - Last Reconciled 04/18/24 by Nimisha Conrad CNM albuterol sulfate 90 mcg/actuation 1 inh inhalation QID PRN fluticasone propionate 110 mcg/actuation (Flovent HFA) 1 puff inhalation BID levonorgestrel (Mirena) intrauterine montelukast 10 mg PO DAILY sertraline 50 mg PO DAILY 30 days Is last menstrual period known: Yes Last menstrual period: 04/18/24 HPI HPI 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 she feels she is in good place now in her life in that she is going to begin engaged her relationship feels in a good place her daughters are 8 and 18, and if she were going to have another baby this would be the best time to do it before she gets much older. She did have gestational diabetes her last and diabetes does run in family she has gained weight but she is embarking on a plan to get back to a ketogenic diet that she was on past and that with which she successfully lost weight and she has plans to resume exercise. She has been caring for her grandmother who just had her knee replaced. She takes an herbal tea to help her use the bathroom and is helpful. She does take a multivitamin every day. [facility] Medical History Chronic right sacroiliac joint pain Anxiety and depression Difficulty sleeping Plantar wart of right foot Encounter for screening laboratory testing for COVID-19 virus in asymptomatic patient Encounter for general adult medical examination with abnormal findings Morbid obesity Gestational diabetes Mild intermittent asthma Surgical History [place] teeth extracted Hx of hernia repair Family History Father Hx of diabetes mellitus Family hx of hypertension Mental health disorder Mother Hx of diabetes mellitus Hypothyroidism Mental health disorder Sister Hx of diabetes mellitus Hypothyroidism Maternal Grandfather Mental health disorder Maternal Grandmother Mental health disorder Social History Housing: House Alcohol intake: current Alcohol intake frequency: a few times a month Patient Tobacco Use Status: Never used Tobacco e-Cigarette/Vaping Use: Never Used service: No Current occupational status: employed Current occupational exposures/hazards: No Gender identity: Female Female Reproductive History Menstrual Age of Menarche: 14 Date of last menstrual period: 04/18/24 control method: progestin IUCD Total pregnancies: 2 Full term: 2 Date of last pap smear: 11/14/20 (negative) Physical Exam Vital Signs: Last Vital Signs BP 112/68 04/18/24 09:31 BMI result Body Mass Index 47.2 Const General: healthy appearing, comfortable, no acute distress, well developed and alert Nutritional Appearance: average body habitus Orientation/consciousness: patient oriented x3 Limitations: no limitations HEENT Head: Yes normocephalic Neck Neck: Yes normal visual inspection Chest Chest palpation & inspection: normal inspection of the chest Breast/axilla inspection: normal inspection of the breasts and normal inspection of the axillae Breast/axilla palpation: normal palpation of the breasts and normal palpation of the axillae Resp Effort & Inspection: normal respiratory effort GI Inspection: Yes normal to inspection, No Abdominal wall edema and No distended Palpation (GI): Soft to palpation and nontender Other: Exam within normal limits vagina pink moist yellowish discharge noted cervix cervix slightly friable Mirena string visible about 2 cm extending from cervix. Cervix multiparous long close thick mobile nontender uterus difficult palpate secondary to adipose adnexa nontender patient unable to recreate Kegel. Discussed access in awareness of pelvic floor muscles while stopping flow of urine and then transfer the practice and skill to other times of day. General: Yes bladder normal to palpation External Female Exam: normal external appearance and normal appearance of the urethra Speculum Exam - Vagina: normal appearance of the vagina, normal palpation and normal vaginal discharge Speculum Exam - Cervix: normal appearance of the cervix, normal palpation and nontender Bimanual exam- vagina & uterus: normal bimanual exam, normal palpation, uterine size normal, bladder normal to palpation, consistency normal, normal palpation, uterine mobility normal, uterine shape normal, No Cervical tenderness present, non-tender and no cervical motion tenderness Bimanual Exam- Adnexa, other: normal adnexae, no masses, normal and No adnexal tenderness Neuro General: patient oriented x3 Results Reviewed Results Reviewed: Name: Dina Bates Age/Sex: 35/F Attending: Nimisha Conrad CNM : 1985 Submitted by: Nimisha Conrad CNM Copies to: MR #: [id number] Status: DEP REF Collected: 11/14/20 Location: .LAB Received: 11/15/20 Interpretation Satisfactory for evaluation. Mild inflammation. Negative for intraepithelial lesion or malignancy. HPV mRNA E6/E7: NOT DETECTED This assay detects E6/E7 viral messenger RNA (mRNA) from 14 high-risk HPV types (16, 18, 31, 33, 35, 39, 45, 51, 52, 56, 58, 59, 66, 68) HPV testing performed by [facility], [place], [place]. See reference laboratory portion of the EMR for entire report. Clinical Information LMP: 10/31/20 Previous PAP test: Unknown date, wnl Material Received ThinPrep cervical Electronically Signed By: MOISE Gipson (ASCP) 11/19/20 1352 The Pap Test is a screening procedure with the inherent possibility of both false negative and false positive results. Results should be interpreted in the context of historic and current clinical findings. Reliability of the Pap Test is enhanced by performing the test on a regular repetitive basis. Patient: Dina Bates Page 1 of 1 Assessment & Plan Assessment & Plan (1) Pelvic floor weakness: Code(s): N81.89 - Other female genital prolapse Category: Medical (2) Presence of 52 mg levonorgestrel-releasing intrauterine device (IUD): Code(s): Z97.5 - Presence of (intrauterine) contraceptive device Category: Social Hx (3) Well woman exam with routine gynecological exam: Code(s): Z01.419 - Encounter for gynecological examination (general) (routine) without abnormal findings Category: Medical (4) Obesity, morbid, BMI 40.0-49.9: Code(s): E66.01 - Morbid (severe) obesity due to excess calories Category: Medical (5) Encounter for preconception consultation: Code(s): Z31.69 - Encounter for other general counseling and advice on procreation Category: Medical (6) Potential exposure to STD: Code(s): Z20.2 - Contact with and (suspected) exposure to infections with a predominantly sexual mode of transmission Category: Medical (7) Hx of gestational diabetes mellitus, not currently : Code(s): Z86.32 - Personal history of gestational diabetes Category: Medical (8) Patient desires : Code(s): Z31.9 - Encounter for procreative management, unspecified Category: Medical Plan -----Discussed in this visit the following: healthy balanced diet, regular and consistent exercise, getting recommended health screens, doing the best she can for her particular health concerns, kegel exercises, pap smear screening and followup recommendations, mammography screening and SBE, normal changes in cycles in her life stage--- .--Discussed that after age 35 the risks of infertility, risks of miscarriage, and chromosomal abnormalities are increased, as well as the risk of complications should she can see if, including diabetes and hypertensive disorders of , pre term delivery and others. I recommend starting vitamins if she has not already started. Discussed that these risks or go up with time. They are much more increased if somebody has any pre-existing conditions. Discussed in general terms the challenges of obesity and challenges for her health and efforts she is engaging in to manage this including dietary changes water intake attention to sleep inclusion of a regular exercise have it and dealing with the may need stressors of life that can contribute to obesity in general. Encouraged her to continue in all have her best efforts Patient has an appointment with her primary care provider coming up May 22 I suggest she talk about her plans to get with her then and see if any other fasting blood work is indicated discussed the importance of making sure that she does not already have pre diabetes or diabetes use that would be an important issue to plan for with the and if that were the case she would want to initiate care at [facility] from the very 1st test. Discussed that she would need to receive care there because she certainly would be at risk for issues with diabetes were retention secondary obesity but if she can lose some weight before getting but that would be all to her good. She has plans to do it in a healthy way and she used a ketogenic diet with protein and vegetables in the past and is embarking on that again. Discussed that if there were any abnormal blood sugar in her labs or anything then sometimes the newer weight loss medications might be indicated and be of assistance as well in achieving weight loss pre . She is taking multivitamin that most likely has folic acid. She feels it would help her to have a goal so she wants to get moving on her plan to she had a so with her embarking on her weight loss journey and plan to discuss all of these issues and get any appropriate fasting labs with her primary care provider in a month, she will schedule a visit for a Mirena removal 2 months. I also discussed with her that if she has any difficulty achieving a and does not become within 6 months she may want to seek assistance from [facility] which is now at [facility]. Orders: Orders Pap Smear Today Z01.419 - Encounter for gynecological examination (general) (routine) without abnormal findings Bacterial Vaginosis Panel Today N89.8 - Other specified noninflammatory disorders of vagina, Z20.2 - Contact with and (suspected) exposure to infections with a predominantly sexual mode of transmission CT NG by PCR Today N89.8 - Other specified noninflammatory disorders of vagina, Z20.2 - Contact with and (suspected) exposure to infections with a predominantly sexual mode of transmission Coding Level of Care Code Est Pt Prev Care 18-39y([id number]) Diagnoses Pelvic floor weakness N81.89 Presence of 52 mg levonorgestrel-releasing intrauterine device (IUD) Z97.5 Well woman exam with routine gynecological exam Z01.419 Obesity, morbid, BMI 40.0-49.9 E66.01 Encounter for preconception consultation Z31.69 Potential exposure to STD Z20.2 Hx of gestational diabetes mellitus, not currently Z86.32 Patient desires Z31.9
[2024-04-18 09:31] VITALS: BP 112/68; BMI 47.2
== END 2024-04-18 10:43 | disposition home or self-care (01) ==
LOC: HO.HWSM 09:23
PROVIDERS: PCP Internal Medicine; Visit Provider Advanced Practice Midwife
DX: Z01.419 Encounter for gynecological examination (general) (routine) without abnormal findings (principal); N81.89 Other female genital prolapse; E66.01 Morbid (severe) obesity due to excess calories; Z20.2 Contact with and (suspected) exposure to infections with a predominantly sexual mode of transmission
CPT/HCPCS: 99395; 99459

== ENCOUNTER 2024-04-18 10:14 | Outpatient (REF) | payer OTHER, SELFPAY ==
[2024-04-18 15:10] LABS: Bacterial Vaginosis PCR NEGATIVE (Negative); Candida Group PCR NOT DETECTED (Not Detect); Candida glab krusei PCR NOT DETECTED (Not Detect); Trichomonas vaginalis PCR NOT DETECTED (Not Detect)
[2024-04-18 15:42] LABS: CT PCR NOT DETECTED (Not Detect.); NG PCR NOT DETECTED (Not Detect.)
== END 2024-04-18 10:15 | disposition home or self-care (01) ==
LOC: HO.LAB 10:14
PROVIDERS: Visit Provider Advanced Practice Midwife
DX: Z13.89 Encounter for screening for other disorder (principal)
CPT/HCPCS: 0352U; 87491; 87591

== ENCOUNTER 2024-05-22 08:16 | Outpatient (REF) | payer OTHER, SELFPAY ==
--- OUTSIDE RECORDS SUMMARY | 2024-05-22 09:54 | XMS_ITS | Clinical Summary ---
Author Organization [facility] Address [address] [place] [phone] Phone Care Team Providers Care It Consulting Manager Name Role Phone Unavailable Primary Care Provider [...]
--- OUTSIDE RECORDS SUMMARY | 2024-05-22 09:54 | XMS_ITS | Encounter Summary ---
Author Organization [facility] Address [address] [place] [phone] Phone Care Team Providers Care Deaf And Hard Of Hearing Teacher Name Role Phone Unavailable Primary Care Provider Unavailabl e Encounter Details Date Type Department Care Team (Late st Contact Info) Description 12/03/2016 Conversion Encounter [facility] - [address] [address] Social History Tobacco Use Types Packs/Day Years Used Date Smoking Tobacco: Never Assessed Comments Unknown Sex and Gender Information Value Date Recorded Sex Assigned at Not on file Legal Sex Female 4:11 PM EDT Gender Identity Not on file Sexual Orientation Not on file documented as of this encounter Plan of Treatment Not on file documented as of this encounter Visit Diagnoses Not on filedocumented in this encounter
[2024-05-22 13:05] LABS: Anion Gap 11 (12-20); TSH reflex Free T4 1.82 uIU/mL (0.32-4.0); Vitamin D 25-OH Total 28.6 ng/mL (>30)
[2024-05-22 13:10] LABS: Alanine Aminotransferase 28 U/L (0-31); Albumin Level 4.2 g/dL (3.5-5.0); Alkaline Phosphatase 35 U/L (39-117); Aspartate Amino Transferase 27 U/L (5-31); Bilirubin Total 0.7 mg/dL (0.0-1.0); Blood Urea Nitrogen 11 mg/dL (9-16); Calcium 8.8 mg/dL (8.4-10.2); Carbon Dioxide 25 mmol/L (22-29); Chloride 108 mmol/L (96-108); Cholesterol 126 mg/dL (<200); Estimated Glomerular Filt Rate > 60; Glucose Fasting 95 mg/dL (60-99); HDL Cholesterol 36 mg/dL (>40); LDL Cholesterol Calculated 78 mg/dL (<100); Potassium 3.6 mmol/L (3.3-5.1); Sodium 140 mmol/L (135-145); Total Protein 7.2 g/dL (6.5-8.0); Triglycerides 64 mg/dL (<150)
== END 2024-05-22 08:17 | disposition home or self-care (01) ==
LOC: HO.HMGCLDS 08:16
PROVIDERS: PCP Internal Medicine; Visit Provider Internal Medicine
DX: Z00.01 Encounter for general adult medical examination with abnormal findings (principal); Z23 Encounter for immunization; J45.20 Mild intermittent asthma, uncomplicated; E66.01 Morbid (severe) obesity due to excess calories; F41.9 Anxiety disorder, unspecified; K59.00 Constipation, unspecified; Z71.89 Other specified counseling; Z13.220 Encounter for screening for lipoid disorders; Z86.32 Personal history of gestational diabetes; Z87.19 Personal history of other diseases of the digestive system; Z97.5 Presence of (intrauterine) contraceptive device
CPT/HCPCS: 36415; 80053; 80061; 82306; 84443; 90471; 90715; 96127; 96160; 99395

== ENCOUNTER 2024-05-22 08:16 | Outpatient (AMB) | payer OTHER, SELFPAY ==
--- OUTSIDE RECORDS SUMMARY | 2024-05-22 08:18 | XMS_ITS | Clinical Summary ---
Author Organization [facility] Address [address] [place] [phone] Phone Care Team Providers Care Operations Administrator Name Role Phone Unavailable Primary Care Provider Unavailabl e Immunizations Name Administration Dates Next Due DTP 05/19/1989, 8,1987,09/16/18 88 Hep B, ped/adol 03/26/2000 Hib (HbOC) 01/16/1989 IPV 10/16/1992, 0,1987,09/16/18 88 MMR 03/26/2000,08/16/1988 Td (adult) (MBL), 2 Lf tetan us toxoid, PF, adsorbed 03/26/2000 Family History Relation Name Status Comments Father Father: ??medic al hx Maternal Grandfather Materna l grandfather: heart Mother Alive Mother: Alive a nd well Other 1 mat/pat: Hypert ension, Diabetes mellitus, cancer Other 2 mat/pat: Hypert ension, Diabetes mellitus, cancer Social History Tobacco Use Types Packs/Day Years Used Date Smoking Tobacco: Never Assessed Comments Unknown Sex and Gender Information Value Date Recorded Sex Assigned at Not on file Legal Sex Female 4:11 PM EDT Gender Identity Not on file Sexual Orientation Not on file Plan of Treatment Health Maintenance Due Date Last Done Comments DTaP,Tdap,and Td Vaccines (6 - Tdap) 03/27/2000 03/26/2000, 05/19/1989, 01/17/1988, Additional history exists Hepatitis B Vaccines (2 of 3 - 3-dose series) 04/23/2000 03/26/2000 Varicella Vaccines (1 of 2 - 13+ 2-dose series) 2000 Influenza Vaccines (#1) 2023 COVID-19 Vaccine ( season) 2023 HIB Vaccines Completed 01/16/1989 IPV Vaccines Completed 10/16/1992, 07/20, 1987, Additional history exists MMR Vaccines Completed 03/26/2000, 08/16/1988 HPV Vaccines Aged Out No longer eligi ble based on patient's age to complete this topic Hepatitis A Vaccines Aged Out No long er eligible based on patient's age to complete this topic Men B Vaccine Aged Out No longer elig ible based on patient's age to complete this topic Meningococcal Vaccine Aged Out No girish dary eligible based on patient's age to complete this topic Pneumococcal Vaccine Aged Out No long er eligible based on patient's age to complete this topic
[2024-05-22 08:33] VITALS: BP 100/62; PULSE 98; RESP 15; TEMP 36.8; O2SAT 99; BMI 45.7
--- NOTE | 2024-05-22 08:33 | MHC.PC.OV ---
Vital Signs 05/22/24 08:33 Height 5 ft 2 in Weight 250 lb BMI 45.7 BP 100/62 Blood Pressure Location Lt brachial Position Sitting Respiration 15 Pulse 98 Pulse Source Pulse Oximeter Temp 98.3 F Temp Source Oral Pulse Oximetry (%) 99 Oxygen Delivery Method Room Air Intake Visit Reasons: Annual PE Intake Note: Pt is here today for her PE Allergies cat dander Allergy (Mild, Verified 05/22/24 08:48) unknown dog dander Allergy (Mild, Verified 05/22/24 08:48) unknown Seasonal Allergies Allergy (Mild, Verified 05/22/24 08:48) sneezing, runny nose Medication List - Last Reconciled 05/22/24 by Emily Little MD albuterol sulfate 90 mcg/actuation 1 inh inhalation QID PRN fluticasone propionate 110 mcg/actuation (Flovent HFA) 1 puff inhalation BID levonorgestrel (Mirena) intrauterine montelukast 10 mg PO DAILY Tobacco use date assessed: 05/22/24 Dental Screening Dental Screen Date: 05/22/24 Did you have a dental visit in the last 12 months?: Yes Did you have a dental problem in the last 6 months where you did not have access to dental care?: No Was dental information given to patient?: Patient has dentist HPI Annual PE HPI Details 39-year-old lady here today for physical exam. She is up-to-date with her examined screening for cervical cancer, last done 04/07/2024 with negative findings done at [facility]. Currently on Mirena IUD. [facility] Medical History (Updated 05/22/24 @ 09:17 by Emily Little MD) History of hemorrhoids Constipation Anxiety disorder History of gestational diabetes Meralgia paresthetica of right side Chronic right sacroiliac joint pain Difficulty sleeping Plantar wart of right foot Encounter for screening laboratory testing for COVID-19 virus in asymptomatic patient Encounter for general adult medical examination with abnormal findings Morbid obesity Mild intermittent asthma Surgical History [place] teeth extracted Hx of hernia repair Family History Father Hx of diabetes mellitus Family hx of hypertension Mental health disorder Mother Hx of diabetes mellitus Hypothyroidism Mental health disorder Sister Hx of diabetes mellitus Hypothyroidism Maternal Grandfather Mental health disorder Maternal Grandmother Mental health disorder Social History Housing: House Alcohol intake: current Alcohol intake frequency: a few times a month Patient Tobacco Use Status: Never used Tobacco e-Cigarette/Vaping Use: Never Used service: No Current occupational status: employed Current occupational exposures/hazards: No Gender identity: Female Cognitive needs: No Hearing needs: No Vision needs: No Female Reproductive History Menstrual Age of Menarche: 14 Duration of menses: 3-5 days Date of last menstrual period: 05/17/24 control method: progestin IUCD Questionnaire PHQ-9 Over the last 2 weeks, how often have you been bothered by any of the following problems? 1. Little interest or pleasure in doing things: not at all 2. Feeling down, depressed, or hopeless: not at all 3. Trouble falling or staying asleep, or sleeping too much: more than half the days 4. Feeling tired or having little energy: more than half the days 5. Poor appetite or overeating: not at all 6. Feeling bad about yourself - or that you are a failure or have let yourself or your family down: not at all 7. Trouble concentrating on things, such as reading the newspaper or watching television: more than half the days 8. Moving or speaking so slowly that other people could have noticed. Or the opposite - being so fidgety or restless that you have been moving around a lot more than usual: not at all 9. Thoughts that you would be better off or of hurting yourself in some way: not at all Total score: 6 Depression Screening Interpretation: Negative Depression Screening Done: Yes 40006 - PHQ-9 Billing: Yes Source: Developed by Drs. Nick Mata, Jenniffer Bangura, Damon Olvera and colleagues, with an educational alfred from [employer]. Thrive Questionnaire Date Thrive assessed: 05/22/24 I am a: Patient What is your living situation today?: I have a steady place to live Within the past 12 months, did the food you bought not last and you didn't have the money to get more?: Never true Within the past 12 months, did you worry whether your food would run out before you got money to buy more?: Never true Do you have trouble paying for medicines?: No Do you have trouble getting transportation to medical appointments?: No Do you have trouble paying your heating and electricity bill?: Yes Do you have trouble taking care of your child, family member or friend?: No Do you have trouble with day-to-day activities such as bathing, preparing meals, shopping, managing finances, etc.?: No Are you currently unemployed and looking for a job?: No Are you interested in more education?: No Please select the resources that you would like help with: Utilities Currently or been in a relationship where the following occur: No concerns reported THRIVE Score: 1 AUDIT C Alcohol Use Questionnaire (AUDIT-C) 1. How often do you have a drink containing alcohol?: Monthly or less 2. How many drinks containing alcohol do you have on a typical day when you are drinking?: 1 or 2 3. How often do you have six or more drinks on one occasion?: Never Total Score: 1 TOYA-7 AMB Questionnaire TOYA-7 Date TOYA - 7 assessed: 05/22/24 Feeling nervous, anxious, or on edge: 1 = Several days Not being able to stop or control worryin = More than half the days Worrying too much about different things: 2 = More than half the days Trouble relaxin = Several days Being so restless that it is hard to sit still: 0 = Not at all Becoming easily annoyed or irritable: 1 = Several days Feeling afraid as if something awful might happen: 1 = Several days Total TOYA-7 score (0-4 normal; 5-9 mild; 10-14 moderate; 15-21 severe): 8 Source: Developed by Drs. Nick Mata, Jenniffer Bangura, Damon Olvera and colleagues, with an educational alfred from [employer]. TOYA-7 Assessment Billing TOYA-7 Assessment Tool: TOYA-7 Assessment 50344 ACT Questionnaire In the past 4 weeks, how much of the time did your asthma keep you from getting as much done at work, school or at home?: None of the time During the past 4 weeks, how often have you had shortness of breath?: Not at all During the past 4 weeks, how often did your asthma symptoms wake you up at night or earlier than usual in the morning?: Not at all During the past 4 weeks, how often have you had to use your rescue inhaler or nebulizer medication?: Once a week or less How would you rate your asthma control during the past 4 weeks?: Well controlled ACT Interpretation: Negative Score: 23 Review of Systems Const Denies fever(s), Denies headache(s) and Denies weakness Eyes Reports no additional complaints and Denies blurry vision ENT Denies dizziness, Denies headache(s), Denies nasal congestion, Denies nasal discharge and Denies sore throat Card Denies chest pain, Denies lightheadedness, Denies palpitations and Denies dyspnea Resp Denies chest congestion, Denies cough, Denies dyspnea and Denies wheezing GI Denies abdominal pain, Denies change in bowel habits and Denies heartburn Details: Stress incontinence Denies urinary frequency, Denies dysuria and Denies urinary urgency Musc Reports as per HPI Skin/Breast Denies breast pain, Denies breast mass and Denies rash Neuro Denies dizziness, Denies headache(s) and Denies weakness Psych Reports no additional complaints Endo Denies polydipsia, Denies polyuria and Denies palpitations Philippe/Lymph Reports no additional complaints Aller/Immun Denies wheezing Physical exam (Primary Care) Vital Signs: Last Vital Signs Temp 98.3 F 05/22/24 08:33 Pulse 98 05/22/24 08:33 Resp 15 05/22/24 08:33 BP 100/62 05/22/24 08:33 Pulse Ox 99 05/22/24 08:33 Oxygen Delivery Method Room Air 05/22/24 08:33 BMI result Body Mass Index 45.7 Tobacco/Smoking Status: Tobacco use Status Tobacco use date assessed 05/22/24 05/22/24 08:34 Patient Tobacco Use Status Never used Tobacco 05/22/24 08:34 e-Cigarette/Vaping Use Never Used 05/22/24 08:34 PHQ-9: PHQ-9 Score PHQ-9: Total score 6 05/22/24 09:22 Depression Screening Interpretation: Negative Thrive Assessment: Date of Thrive Assessment Date Thrive assessed 05/22/24 05/22/24 08:34 Currently or been in a relationship where the following occur: No concerns reported Advance Care Planning discussion: Completed/Scanned Date of discussion: 05/22/24 Who was present: Patient Forms completed: Health Care Proxy Time spent: 16-45 minutes Actual minutes spent: 3 Immunizations Boostrix Tdap 2.5 Lf unit-8 mcg-5 Lf/0.5 mL intramuscular syringe Performing Provider: Emily Little MD Performing Location: [facility] Administered by: Ilsa Willard CMA on 05/22/24 09:26 Dose Route Admin Location Dispensed Lot Number Expiration Date NDC [employer] 0.5 mL IM Left Deltoid 0.5 mL [id number] 07/05/26 08457-038-34 [employer] VIS Given Date VIS Provided VIS Publication Date 05/22/24 Single Vaccine 20 Eligibility Eligibility Date Funding Source Not [facility] Eligible 05/22/24 Private Coding Level of Care Code Est Pt Prev Care 18-39y(51284) Diagnoses Mild intermittent asthma without complication J45.20 Asthma complication type: uncomplicated Encounter for general adult medical examination with abnormal findings Z00.01 Obesity, morbid, BMI 40.0-49.9 E66.01 Presence of 52 mg levonorgestrel-releasing intrauterine device (IUD) Z97.5 Hx of gestational diabetes mellitus, not currently Z86.32 Encounter for counseling regarding advance directives Z71.89 Additional Codes Asthma Control Questionnaire - ACT Interpretation: Negative ([id number]) TOYA-7 Assessment Billing - TOYA-7 Assessment Tool: TOYA-7 Assessment 28163 ([id number]) PHQ-9 - 20606 - PHQ-9 Billing: Yes ([id number]) Vital Signs *Quality* - Advance Care Planning discussion: Completed/Scanned ([id number]) Vital Signs *Quality* - Time spent: 16-45 minutes ([id number]) Assessment & Plan Assessment & Plan (1) Mild intermittent asthma: Code(s): J45.20 - Mild intermittent asthma, uncomplicated Category: Medical Qualifiers: Asthma complication type: uncomplicated Qualified Code(s): J45.20 - Mild intermittent asthma, uncomplicated (2) Encounter for general adult medical examination with abnormal findings: Code(s): Z00.01 - Encounter for general adult medical examination with abnormal findings Category: Medical Plan: Tdap given, recommended as well to get pneumonia vaccination, which will be given on next visit (3) Obesity, morbid, BMI 40.0-49.9: Code(s): E66.01 - Morbid (severe) obesity due to excess calories Category: Medical (4) Presence of 52 mg levonorgestrel-releasing intrauterine device (IUD): Code(s): Z97.5 - Presence of (intrauterine) contraceptive device Category: Social Hx (5) Hx of gestational diabetes mellitus, not currently : Code(s): Z86.32 - Personal history of gestational diabetes Category: Medical (6) Encounter for counseling regarding advance directives: Code(s): Z71.89 - Other specified counseling Orders: Orders TSH reflex Free T4 Today E66.01 - Morbid (severe) obesity due to excess calories, F41.9 - Anxiety disorder, unspecified, J45.20 - Mild intermittent asthma, uncomplicated, K59.00 - Constipation, unspecified, Z00.01 - Encounter for general adult medical examination with abnormal findings, Z13.220 - Encounter for screening for lipoid disorders, Z71.89 - Other specified counseling, Z86.32 - Personal history of gestational diabetes, Z87.19 - Personal history of other diseases of the digestive system, Z97.5 - Presence of (intrauterine) contraceptive device Vitamin D 25-OH Total Today E66.01 - Morbid (severe) obesity due to excess calories, F41.9 - Anxiety disorder, unspecified, J45.20 - Mild intermittent asthma, uncomplicated, K59.00 - Constipation, unspecified, Z00.01 - Encounter for general adult medical examination with abnormal findings, Z13.220 - Encounter for screening for lipoid disorders, Z71.89 - Other specified counseling, Z86.32 - Personal history of gestational diabetes, Z87.19 - Personal history of other diseases of the digestive system, Z97.5 - Presence of (intrauterine) contraceptive device Comprehensive [place]. Panel Fast Today E66.01 - Morbid (severe) obesity due to excess calories, F41.9 - Anxiety disorder, unspecified, J45.20 - Mild intermittent asthma, uncomplicated, K59.00 - Constipation, unspecified, Z00.01 - Encounter for general adult medical examination with abnormal findings, Z13.220 - Encounter for screening for lipoid disorders, Z71.89 - Other specified counseling, Z86.32 - Personal history of gestational diabetes, Z87.19 - Personal history of other diseases of the digestive system, Z97.5 - Presence of (intrauterine) contraceptive device Lipid Panel Today E66.01 - Morbid (severe) obesity due to excess calories, F41.9 - Anxiety disorder, unspecified, J45.20 - Mild intermittent asthma, uncomplicated, K59.00 - Constipation, unspecified, Z00.01 - Encounter for general adult medical examination with abnormal findings, Z13.220 - Encounter for screening for lipoid disorders, Z71.89 - Other specified counseling, Z86.32 - Personal history of gestational diabetes, Z87.19 - Personal history of other diseases of the digestive system, Z97.5 - Presence of (intrauterine) contraceptive device TDaP Immunization Today Z23 - Encounter for immunization Medications: New Boostrix Tdap (diphth,pertus(acell),tetanus) 0.5 mL IM ONCE 0.5 mL 0RF NS Z23 - Encounter for immunization phentermine must administer 2 hours after breakfast 15 mg PO DAILY 30 caps 0RF Discontinued fluticasone propionate 110 mcg/actuation (Flovent HFA) administer with spacer Discontinued Reason: Patient no longer taking 1 puff inhalation BID 12 grams 0RF
== END 2024-05-22 09:28 | disposition home or self-care (01) ==
PROVIDERS: PCP Internal Medicine; Visit Provider Internal Medicine
DX: Z23 Encounter for immunization (principal)

== ENCOUNTER 2024-10-19 13:32 | Outpatient (AMB) | payer MEDICARE, SELFPAY ==
--- NOTE | 2024-10-19 13:33 | A.OFFPC_ITS ---
Vital Signs 10/19/24 13:38 Height 5 ft 2 in Weight 245 lb BMI 44.8 BP 108/70 Blood Pressure Location Rt brachial Position Sitting Respiration 16 Pulse 97 Pulse Source Pulse Oximeter Temp 98.2 F Temp Source Oral Pulse Oximetry (%) 98 Oxygen Delivery Method Room Air Intake Visit Reasons: discuss weight loss options Intake Note: Pt is here today to discuss weight loss options Allergies cat dander Allergy (Mild, Verified 10/22/24 16:12) unknown dog dander Allergy (Mild, Verified 10/22/24 16:12) unknown Seasonal Allergies Allergy (Mild, Verified 10/22/24 16:12) sneezing, runny nose Medication List - Last Reconciled 10/22/24 by Emily Little MD albuterol sulfate 90 mcg/actuation 1 inh inhalation QID PRN levonorgestrel (Mirena) intrauterine montelukast 10 mg PO DAILY Zepbound (tirzepatide (weight loss)) 2.5 mg (0.5 mL) subcut QWEEK NS Tobacco use date assessed: 10/19/24 Dental Screening Dental Screen Date: 10/19/24 Did you have a dental visit in the last 12 months?: Yes Did you have a dental problem in the last 6 months where you did not have access to dental care?: No Was dental information given to patient?: Patient has dentist HPI discuss weight loss options HPI Details 39-year-old lady with history of gestati onal diabetes, morbid obesity currently BMI 44.8, here to discuss starting medication to help with weight loss. She has been eating a healthy diet, avoiding eating a of processed foods or junk food. Has started doing at least 30 minutes of regular exercise 3 to 4 times a week and has been tried on phentermine approximately 3 months ago. Patient states that she has only lost about 5 panel is since starting the medication and has been experiencing intermittent episodes of headache on the medication. Would like to try something else that will help with weight loss [facility] Medical History History of hemorrhoids Constipation Anxiety disorder History of gestational diabetes Meralgia paresthetica of right side Chronic right sacroiliac joint pain Difficulty sleeping Plantar wart of right foot Encounter for screening laboratory testing for COVID-19 virus in asymptomatic patient Encounter for general adult medical examination with abnormal findings Morbid obesity Mild intermittent asthma Surgical History [place] teeth extracted Hx of hernia repair Family History Father Hx of diabetes mellitus Family hx of hypertension Mental health disorder Mother Hx of diabetes mellitus Hypothyroidism Mental health disorder Sister Hx of diabetes mellitus Hypothyroidism Maternal Grandfather Mental health disorder Maternal Grandmother Mental health disorder Social History Housing: House Alcohol intake: current Alcohol intake frequency: a few times a month Patient Tobacco Use Status: Never used Tobacco e-Cigarette/Vaping Use: Never Used service: No Current occupational status: employed Current occupational exposures/hazards: No Gender identity: Female Cognitive needs: No Hearing needs: No Vision needs: No Female Reproductive History Menstrual Age of Menarche: 14 Questionnaire Thrive Questionnaire Date Thrive assessed: 05/22/24 I am a: Patient What is your living situation today?: I have a steady place to live Within the past 12 months, did the food you bought not last and you didn't have the money to get more?: Never true Within the past 12 months, did you worry whether your food would run out before you got money to buy more?: Never true Do you have trouble paying for medicines?: No Do you have trouble getting transportation to medical appointments?: No Do you have trouble paying your heating and electricity bill?: Yes Do you have trouble taking care of your child, family member or friend?: No Do you have trouble with day-to-day activities such as bathing, preparing meals, shopping, managing finances, etc.?: No Are you currently unemployed and looking for a job?: No Are you interested in more education?: No Please select the resources that you would like help with: Utilities Currently or been in a relationship where the following occur: No concerns reported THRIVE Score: 1 TOYA-7 AMB Questionnaire TOYA-7 Date TOYA - 7 assessed: 05/22/24 Source: Developed by Drs. Nick Mata, Jenniffer Bangura, Damon Olvera and colleagues, with an educational alfred from [employer]. Review of Systems Const Denies fever(s), Denies headache(s) and Denies weakness Eyes Reports no additional complaints ENT Denies dizziness, Denies headache(s), Denies nasal congestion, Denies nasal discharge and Denies sore throat Card Denies chest pain, Denies lightheadedness, Denies palpitations and Denies dyspn ea Resp Denies chest congestion, Denies cough, Denies dyspnea and Denies wheezing GI Denies abdominal pain, Denies change in bowel habits and Denies heartburn Details: Stress incontinence Denies urinary frequency, Denies dysuria and Denies urinary urgency Musc Reports as per HPI Skin/Breast Denies breast pain, Denies breast mass and Denies rash Neuro Denies dizziness, Denies headache(s) and Denies weakness Psych Reports no additional complaints Endo Denies polydipsia, Denies polyuria and Denies palpitations Philippe/Lymph Reports no additional complaints Aller/Immun Denies wheezing Physical exam (Primary Care) Vital Signs: Last Vital Signs Temp 98.2 F 10/19/24 13:38 Pulse 97 10/19/24 13:38 Resp 16 10/19/24 13:38 BP 108/70 10/19/24 13:38 Pulse Ox 98 10/19/24 13:38 Oxygen Delivery Method Room Air 10/19/24 13:38 BMI result Body Mass Index 44.8 BMI Assessment/Plan discussion: High BMI High, discussed plan: lifestyle, weight reduction, dietary and physical activity Tobacco/Smoking Status: Tobacco use Status Tobacco use date assessed 10/19/24 10/19/24 13:42 Patient Tobacco Use Status Never used Tobacco 10/19/24 13:37 e-Cigarette/Vaping Use Never Used 10/19/24 13:37 Thrive Assessment: Date of Thrive Assessment Date Thrive assessed 05/22/24 10/19/24 13:37 Currently or been in a relationship where the following occur: No concerns reported Const General: no acute distress and alert Nutritional Appearance: obese morbidly obese Orientation/consciousness: patient oriented x3 HENMT Ears: external ears normal General nose exam: Normal external nose present Face and sinus: Yes face symmetric Mouth: Normal oral and palatal mucosa present and moist mucous membranes Eyes General: appearance normal, both eyes and all related structures Neck Neck: Yes full ROM, Yes no lymphadenopathy and Yes supple Thyroid: Thyroid normal Resp Auscultation: clear to auscultation bilaterally Cardio Other: S1-S2 present regular rate and rhythm GI Palpation (GI): Soft to palpation, nontender and no guarding Auscultation: normal bowel sounds Back/Spine/Pelvis Back: No back tenderness Skin General skin exam: no rashes or lesions noted Neuro General: patient oriented x3 Extrem General: Yes full ROM, Yes no joint enlargement, Yes no pedal edema, Yes no calf tenderness and Yes normal gait Psych Appearance: grossly normal and well kempt Mental Status: mental status grossly normal Speech and movement: Normal speech and movement present Affect: normal affect Attitude: cooperative Thought process: Normal thought process present Coding Level of Care Code Est Pt Level 4 (21625) Diagnoses Morbid obesity E66.01 History of gestational diabetes Z86.32 Assessment & Plan Assessment & Plan (1) Morbid obesity: Code(s): E66.01 - Morbid (severe) obesity due to excess calories Category: Medical (2) History of gestational diabetes: Code(s): Z86.32 - Personal history of gestational diabetes Category: Medical Plan Reinforced importance of continuing with following a healthy diet, and getting regular exercise at least 30 minutes of moderate intensity exercise 3-4 times. Unable to tolerate phentermine and was not effective in helping with lipid loss. Will try her on Zepbound start on a dose of 2.5 mg injected subcutaneously once a week. Patient instructed on proper use of medication, and discussed possible side effects of it which may include alteration in bowel habits, some nausea abdominal cramping and bloating. Heart any sudden loss of vision change in vision , get at least an eye exam every 2 years and inform her retirement specialist that she is on medication. See her back for follow-up starting Zepbound in 2 months Medications: New Zepbound (tirzepatide (weight loss)) for 4 weeks 2.5 mg (0.5 mL) subcut QWEEK 2 mL 1RF NS E66.01 - Morbid (severe) obesity due to excess calories, Z86.32 - Personal history of gestational diabetes
[2024-10-19 13:38] VITALS: BP 108/70; PULSE 97; RESP 16; TEMP 36.8; O2SAT 98; BMI 44.8
--- OUTSIDE RECORDS SUMMARY | 2024-10-19 13:40 | XMS_ITS | Encounter Summary ---
Author Organization [facility] Address [address] [place] [phone] Phone Care Team Providers Care Looper Operator Name Role Phone Unavailable Primary Care Provider Unavailabl e Encounter Details Date Type Department Care Team (Late st Contact Info) Description 12/03/2016 Conversion Encounter [facility] - [address] [address] Social History Tobacco Use Types Packs/Day Years [...]
== END 2024-10-19 14:51 | disposition home or self-care (01) ==
LOC: HO.HMCC 13:33
PROVIDERS: PCP Internal Medicine; Visit Provider Internal Medicine
DX: E66.01 Morbid (severe) obesity due to excess calories (principal); Z86.32 Personal history of gestational diabetes; Z68.41 Body mass index [BMI] 40.0-44.9, adult

== ENCOUNTER → 2024-10-19 13:32 | Outpatient (BNVA) | payer MEDICARE, SELFPAY | PROVIDERS: PCP Internal Medicine; Visit Provider Internal Medicine | DX: E66.01 Morbid (severe) obesity due to excess calories (principal); Z68.41 Body mass index [BMI] 40.0-44.9, adult; Z86.32 Personal history of gestational diabetes | CPT/HCPCS: 99212 ==

== ENCOUNTER 2025-01-16 09:35 | Outpatient (AMB) | payer OTHER, SELFPAY ==
[2025-01-16 09:53] VITALS: BP 112/72; PULSE 91; RESP 16; TEMP 36.6; O2SAT 99; BMI 44.6
--- NOTE | 2025-01-16 09:53 | AM.OFFWIN_ITS ---
Intake Vital Signs 01/16/25 09:53 Height 5 ft 2 in Weight 244 lb BMI 44.6 BP 112/72 Blood Pressure Location Lt brachial Position Sitting Respiration 16 Pulse 91 Pulse Source Pulse Oximeter Temp 97.9 F Temp Source Oral Pulse Oximetry (%) 99 Oxygen Delivery Method Room Air Intake Visit Reasons: EP Right knee pain Patient Tobacco Use Status: Never used Tobacco Oral Surgeon Required: No Accompanied by: Self / Same As Patient Allergies cat dander Allergy (Mild, Verified 01/16/25 09:55) unknown dog dander Allergy (Mild, Verified 01/16/25 09:55) unknown Seasonal Allergies Allergy (Mild, Verified 01/16/25 09:55) sneezing, runny nose Medication List - Last Reconciled 01/16/25 by Lillian Garcia MD albuterol sulfate 90 mcg/actuation 1 inh inhalation QID PRN levonorgestrel (Mirena) intrauterine montelukast 10 mg PO DAILY HPI EP Right knee pain HPI Details Chief complaint right knee pain for the past few days Medical History - Active exercise routine involving card io five to six days a week. - Previous use of [id number] compr ession knee support - Family history of severe arthritis and osteoporosis. - No prior history of knee problems repo rted. Problem List - Right Knee Pain Plan 1. Right Knee Pain - Ordered an X-ray of the right knee to evaluate for potential bone issues or signs indicative of arthritis. - Discussed the possibility of a ligamen t sprain; - Prescribed medication for pain relief, recommended usage for one week. X-ray report came back within normal limit patient was notified I would recommend to follow up with the primary care Patient Instructions - Take prescribed medication for knee pa in as directed for one week. - Visit the X-ray department next door a s instructed for imaging of the right knee. - Monitor symptoms and be alert for any changes or worsening of pain. - Avoid strenuous activity that may exac erbate the knee pain. - Follow up with primary care for furthe r evaluation and any additional treatment steps. Review of Systems - General: No fever no chills - Neurological: No headaches no dizziness - Ear nose throat: No sore throat no hearing difficulty no ear pain - Cardiovascular: No syncope, no chest pain, no palpitations - Gastrointestinal: No nausea vomiting or diarrhea Physical Exam General: No acute distress HEENT: No acute findings Neck: Supple Respiratory system: Able to talk in full sentences, no audible wheeze Gastrointestinal: No pain Extremities: Right knee pain, soreness on the front and lateral side of knee with palpation full range of motion but painful HOSTEL PARENT: Alert awake oriented x3 motor intact Skin: Normal turgor [facility] Medical History History of hemorrhoids Constipation Anxiety disorder History of gestational diabetes Meralgia paresthetica of right side Chronic right sacroiliac joint pain Difficulty sleeping Plantar wart of right foot Encounter for screening laboratory testing for COVID-19 virus in asymptomatic patient Encounter for general adult medical examination with abnormal findings Morbid obesity Mild intermittent asthma Surgical History [place] teeth extracted Hx of hernia repair Family History Father Hx of diabetes mellitus Family hx of hypertension Mental health disorder Mother Hx of diabetes mellitus Hypothyroidism Mental health disorder Sister Hx of diabetes mellitus Hypothyroidism Maternal Grandfather Mental health disorder Maternal Grandmother Mental health disorder Social History Housing: House Alcohol intake: current Alcohol intake frequency: a few times a month Patient Tobacco Use Status: Never used Tobacco e-Cigarette/Vaping Use: Never Used service: No Current occupational status: employed Current occupational exposures/hazards: No Gender identity: Female Cognitive needs: No Hearing needs: No Vision needs: No Female Reproductive History Menstrual Age of Menarche: 14 Physical Exam Vital Signs: Last Vital Signs Temp 97.9 F 01/16/25 09:53 Pulse 91 01/16/25 09:53 Resp 16 01/16/25 09:53 BP 112/72 01/16/25 09:53 Pulse Ox 99 01/16/25 09:53 Oxygen Delivery Method Room Air 01/16/25 09:53 BMI result Body Mass Index 44.6 Assessment & Plan Assessment & Plan (1) Knee pain, right: Code(s): M25.561 - Pain in right knee Qualifiers: Chronicity: acute Qualified Code(s): M25.561 - Pain in right knee Plan Plan 1. Right Knee Pain - Ordered an X-ray of the right knee to evaluate for potential bone issues or signs indicative of arthritis. - Discussed the possibility of a ligament sprain; - Prescribed medication for pain relief, recommended usage for one week. X-ray report came back within normal limit patient was notified I would recommend to follow up with the primary care Patient Instructions - Take prescribed medication for knee pain as directed for one week. - Visit the X-ray department next door as instructed for imaging of the right knee. - Monitor symptoms and be alert for any changes or worsening of pain. - Avoid strenuous activity that may exacerbate the knee pain. - Follow up with primary care for further evaluation and any additional treatmen t steps. Orders: Orders XR knee RT 2V Today M25.561 - Pain in right knee Medications: New diclofenac sodium 25 mg PO BID 10 days 20 tabs 0RF Coding Level of Care Code Est Pt Level 3 (60939) Diagnoses Acute pain of right knee M25.561 Chronicity: acute
--- OUTSIDE RECORDS SUMMARY | 2025-01-16 10:23 | XMS_ITS | Clinical Summary ---
Author Organization [facility] Address [address] [place] [phone] Phone Care Team Providers Care Early Head Start Director Name Role Phone Unavailable Primary Care Provider Unavailabl e Immunizations Immunization Administration Dates Next Due DTP 05/19/1989, 8,1987,1987 Hep B, ped/adol 03/26/2000 Hib (HbOC) 01/16/1989 IPV 10/16/1992, 0,1987,1987 MMR 03/26/2000,08/16/1988 Td (adult) (MBL), 2 Lf [...] of 2 - 13+ 2-dose series) 2000 HPV Vaccines (1 - 3-dose SCDM series) 2014 Influenza Vaccines (#1) 2024 COVID-19 Vaccine ( season) 2024 HIB Vaccines Completed 01/16/1989 IPV Vaccines Completed 10/16/1992, 07/20, 1987, Additional history exists MMR Vaccines Completed 03/26/2000, 08/16/1988 Hepatitis A Vaccines Aged Out No long [...]
--- OUTSIDE RECORDS SUMMARY | 2025-01-16 10:23 | XMS_ITS | Encounter Summary ---
Author Organization [facility] Address [address] [place] [phone] Phone Care Team Providers Care Manager Statistics Name Role Phone Unavailable Primary Care Provider Unavailabl e Encounter Details Date Type Department Care Team (Late st Contact Info) Description 12/03/2016 Conversion Encounter [facility] - [address] [id number] Social History Tobacco Use Types Packs/Day Years [...]
== END 2025-01-16 10:21 | disposition home or self-care (01) ==
PROVIDERS: PCP Internal Medicine; Visit Provider Internal Medicine
DX: M25.561 Pain in right knee (principal)

== ENCOUNTER 2025-01-16 09:35 | Outpatient (REF) | payer OTHER, SELFPAY ==
--- NOTE | ~2025-01-16 | XR_ITS ---
EXAMINATION: XR KNEE, RIGHT CLINICAL INFORMATION: M25.561 - Pain in right knee COMPARISON: None available. TECHNIQUE: Two views of the right knee. FINDINGS: No fracture, dislocation, or suspicious bone lesion. There is normal alignment. Joint spaces are preserved. There is no evidence of joint effusion. The soft tissues appear normal. XR/XR knee RT 2V IMPRESSION: Normal right knee. Electronically signed by: Chucky Landa MD 01/16/2025 10:20 AM EDT
== END 2025-01-16 09:36 | disposition home or self-care (01) ==
LOC: HO.HMGCX 09:35
PROVIDERS: PCP Internal Medicine; Visit Provider Internal Medicine
DX: M25.561 Pain in right knee (principal)
CPT/HCPCS: 73560

== ENCOUNTER → 2025-01-16 10:08 | Outpatient (BNV) | payer OTHER, SELFPAY | PROVIDERS: PCP Internal Medicine; Visit Provider Radiology Diagnostic Radiology | DX: M25.561 Pain in right knee (principal) | CPT/HCPCS: 73560 ==

== ENCOUNTER 2025-02-21 08:17 | Outpatient (AMB) | payer OTHER, SELFPAY ==
--- OUTSIDE RECORDS SUMMARY | 2025-02-21 08:25 | XMS_ITS | Encounter Summary ---
Author Organization [facility] Address [address] [place] [phone] Phone Care Team Providers Care Race Engine Builder Name Role Phone Unavailable Primary Care Provider Unavailabl e Encounter Details Date Type Department Care Team (Late st Contact Info) Description 12/03/2016 Conversion Encounter [facility] - [address] [address] Social History Tobacco Use Types Packs/Day Years [...]
--- OUTSIDE RECORDS SUMMARY | 2025-02-21 08:25 | XMS_ITS | Clinical Summary ---
Author Organization [facility] Address [address] [place] [address] Phone Care Team Providers Care Dress Draper Name Role Phone Unavailable Primary Care Provider [...]
--- NOTE | 2025-02-21 08:26 | MHC.PC.OV ---
Vital Signs 02/21/25 08:27 Height 5 ft 2 in Weight 248 lb BMI 45.4 BP 100/70 Blood Pressure Location Lt brachial Position Sitting Respiration 16 Pulse 84 Pulse Source Pulse Oximeter Temp 98.1 F Temp Source Oral Pulse Oximetry (%) 99 Oxygen Delivery Method Room Air Intake Visit Reasons: f/u zepbound Intake Note: Pt is here today for other options for weight loss Allergies cat dander Allergy (Mild, Verified 02/21/25 08:35) unknown dog dander Allergy (Mild, Verified 02/21/25 08:35) unknown Seasonal Allergies Allergy (Mild, Verified 02/21/25 08:35) sneezing, runny nose Medication List - Last Reconciled 02/21/25 by Emily Little MD albuterol sulfate 90 mcg/actuation 1 inh inhalation QID PRN levonorgestrel (Mirena) intrauterine montelukast 10 mg PO DAILY Tobacco use date assessed: 02/21/25 Dental Screening Dental Screen Date: 02/21/25 Did you have a dental visit in the last 12 months?: Yes Did you have a dental problem in the last 6 months where you did not have access to dental care?: No Was dental information given to patient?: Patient has dentist HPI f/u zepbound HPI Details 39-year-old lady with history of obesity, gestational diabetes, presenting today to discuss other weight loss options. Has tried GLP 1 agonist in the past but prescription no longer covering it. Has been compliant with the recommended diet, but had to stop exercising due to a right knee injury which happened this summer. Patient also reports having passed blood clot with accompanied by abdominal cramps 12/02/2024 which was followed by at least 3 days of vaginal bleeding. Patient has an IUD, and states that she has not had a menstrual periods since November until present time. There was no recurrence of her abdominal cramping however since then. [facility] Medical History History of hemorrhoids Constipation Anxiety disorder History of gestational diabetes Meralgia paresthetica of right side Chronic right sacroiliac joint pain Difficulty sleeping Plantar wart of right foot Encounter for screening laboratory testing for COVID-19 virus in asymptomatic patient Encounter for general adult medical examination with abnormal findings Morbid obesity Mild intermittent asthma Surgical History [place] teeth extracted Hx of hernia repair Family History Father Hx of diabetes mellitus Family hx of hypertension Mental health disorder Mother Hx of diabetes mellitus Hypothyroidism Mental health disorder Sister Hx of diabetes mellitus Hypothyroidism Maternal Grandfather Mental health disorder Maternal Grandmother Mental health disorder Social History Housing: House Alcohol intake: current Alcohol intake frequency: a few times a month Patient Tobacco Use Status: Never used Tobacco e-Cigarette/Vaping Use: Never Used service: No Current occupational status: employed Current occupational exposures/hazards: No Gender identity: Female Cognitive needs: No Hearing needs: No Vision needs: No Female Reproductive History Menstrual Age of Menarche: 14 Date of last menstrual period: 12/02/24 control method: progestin IUCD Questionnaire PHQ-9 Over the last 2 weeks, how often have you been bothered by any of the following problems? 1. Little interest or pleasure in doing things: not at all 2. Feeling down, depressed, or hopeless: not at all 3. Trouble falling or staying asleep, or sleeping too much: more than half the days 4. Feeling tired or having little energy: more than half the days 5. Poor appetite or overeating: not at all 6. Feeling bad about yourself - or that you are a failure or have let yourself or your family down: not at all 7. Trouble concentrating on things, such as reading the newspaper or watching television: more than half the days 8. Moving or speaking so slowly that other people could have noticed. Or the opposite - being so fidgety or restless that you have been moving around a lot more than usual: not at all 9. Thoughts that you would be better off or of hurting yourself in some way: not at all Total score: 6 Depression Screening Interpretation: Negative Depression Screening Done: Yes Source: Developed by Drs. Nick Mata, Jenniffer Bangura, Damon Olvera and colleagues, with an educational alfred from [employer]. Thrive Questionnaire Date Thrive assessed: 05/22/24 I am a: Patient What is your living situation today?: I have a steady place to live Within the past 12 months, did the food you bought not last and you didn't have the money to get more?: Never true Within the past 12 months, did you worry whether your food would run out before you got money to buy more?: Never true Do you have trouble paying for medicines?: No Do you have trouble getting transportation to medical appointments?: No Do you have trouble paying your heating and electricity bill?: Yes Do you have trouble taking care of your child, family member or friend?: No Do you have trouble with day-to-day activities such as bathing, preparing meals, shopping, managing finances, etc.?: No Are you currently unemployed and looking for a job?: No Are you interested in more education?: No Please select the resources that you would like help with: Utilities Currently or been in a relationship where the following occur: No concerns reported THRIVE Score: 1 AUDIT C Alcohol Use Questionnaire (AUDIT-C) 1. How often do you have a drink containing alcohol?: Monthly or less 2. How many drinks containing alcohol do you have on a typical day when you are drinking?: 1 or 2 3. How often do you have six or more drinks on one occasion?: Never Total Score: 1 TOYA-7 AMB Questionnaire TOYA-7 Date TOYA - 7 assessed: 02/21/25 Feeling nervous, anxious, or on edge: 0 = Not at all Not being able to stop or control worryin = Not at all Worrying too much about different things: 0 = Not at all Trouble relaxin = Not at all Being so restless that it is hard to sit still: 0 = Not at all Becoming easily annoyed or irritable: 0 = Not at all Feeling afraid as if something awful might happen: 0 = Not at all Total TOYA-7 score (0-4 normal; 5-9 mild; 10-14 moderate; 15-21 severe): 0 Source: Developed by Drs. Nick Mata, Jenniffer Bangura, Damon Olvera and colleagues, with an educational alfred from [employer]. TOYA-7 Assessment Billing TOYA-7 Assessment Tool: TOYA-7 Assessment 43724 Review of Systems Const All systems reviewed & are unremarkable except as noted in HPI and below Physical exam (Primary Care) Vital Signs: Last Vital Signs Temp 98.1 F 02/21/25 08:27 Pulse 84 02/21/25 08:27 Resp 16 02/21/25 08:27 BP 100/70 02/21/25 08:27 Pulse Ox 99 02/21/25 08:27 Oxygen Delivery Method Room Air 02/21/25 08:27 BMI result Body Mass Index 45.4 BMI Assessment/Plan discussion: High BMI High, discussed plan: lifestyle, weight reduction, dietary and physical activity Tobacco/Smoking Status: Tobacco use Status Tobacco use date assessed 02/21/25 02/21/25 08:32 Patient Tobacco Use Status Never used Tobacco 02/21/25 08:32 e-Cigarette/Vaping Use Never Used 02/21/25 08:32 PHQ-9: PHQ-9 Score PHQ-9: Total score 6 02/21/25 08:32 Depression Screening Interpretation: Negative Thrive Assessment: Date of Thrive Assessment Date Thrive assessed 05/22/24 02/21/25 08:32 Currently or been in a relationship where the following occur: No concerns reported Const General: no acute distress and alert Nutritional Appearance: obese morbidly obese Orientation/consciousness: patient oriented x3 HENMT Mouth: moist mucous membranes Eyes General: appearance normal, both eyes and all related structures Neck Neck: Yes full ROM, Yes no lymphadenopathy and Yes supple Resp Auscultation: clear to auscultation bilaterally Cardio Other: S1-S2 present regular rate and rhythm GI Palpation (GI): Soft to palpation, nontender and no guarding Auscultation: normal bowel sounds Neuro General: patient oriented x3 Extrem General: Yes full ROM, Yes no joint enlargement, Yes no pedal edema, Yes no calf tenderness and Yes normal gait Coding Level of Care Code Est Pt Level 4 (44714) Diagnoses Missed period N92.6 Morbid obesity E66.01 Additional Codes TOYA-7 Assessment Billing - TOYA-7 Assessment Tool: TOYA-7 Assessment 78583 ([id number]) Assessment & Plan Assessment & Plan (1) Missed period: Code(s): N92.6 - Irregular menstruation, unspecified Plan: Patient to get her blood drawn to check her serum hCG. Advised to keep appointment with her OBGYN next month. (2) Morbid obesity: Code(s): E66.01 - Morbid (severe) obesity due to excess calories Category: Medical Plan: Patient would like to start taking a GLP 1 agonist . She has tried phentermine but developed severe headaches when she started taking it. She has been compliant with a healthy diet and has been exercising regularly until a month ago when she injured her knee . Discussed other options to get Zepbound which includes joining the weight watchers clinic where they prescribed with generic Zepbound, Hers program, Noom program, which are all online and applying to [facility] to to see if she can qualify getting the Zepbound prescription Orders: Orders HCG Quantitative Today N92.6 - Irregular menstruation, unspecified
[2025-02-21 08:27] VITALS: BP 100/70; PULSE 84; RESP 16; TEMP 36.7; O2SAT 99; BMI 45.4
== END 2025-02-21 09:05 | disposition home or self-care (01) ==
LOC: HO.HMCC 08:18
PROVIDERS: PCP Internal Medicine; Visit Provider Internal Medicine
DX: N92.6 Irregular menstruation, unspecified (principal); E66.01 Morbid (severe) obesity due to excess calories; Z68.42 Body mass index [BMI] 45.0-49.9, adult

== ENCOUNTER 2025-02-21 08:17 | Outpatient (REF) | payer OTHER, SELFPAY | END 2025-02-21 08:18 | disposition home or self-care (01) | LOC: HO.HMGCLDS 08:17 | PROVIDERS: PCP Internal Medicine; Visit Provider Internal Medicine | DX: E66.01 Morbid (severe) obesity due to excess calories (principal); N92.6 Irregular menstruation, unspecified; Z97.5 Presence of (intrauterine) contraceptive device; Z68.42 Body mass index [BMI] 45.0-49.9, adult | CPT/HCPCS: 36415; 84702; 96127 ==

== ENCOUNTER 2025-04-05 09:05 | Outpatient (AMB) | payer OTHER, SELFPAY ==
--- NOTE | 2025-04-05 09:08 | A.OFFVIS_ITS ---
Vital Signs 04/05/25 10:51 Height 5 ft 2 in Weight 248 lb BMI 45.4 BP 114/74 Intake Visit Reasons: Iud removal Trackwalker: Trackwalker Present (Renee) Accompanied by: Self / Same As Patient Allergies cat dander Allergy (Mild, Verified 04/05/25 09:22) unknown dog dander Allergy (Mild, Verified 04/05/25 09:22) unknown Seasonal Allergies Allergy (Mild, Verified 04/05/25 09:22) sneezing, runny nose Medication List - Last Reconciled 04/05/25 by Nimisha Conrad CNM albuterol sulfate 90 mcg/actuation 1 inh inhalation QID PRN levonorgestrel (Mirena) intrauterine montelukast 10 mg PO DAILY Is last menstrual period known: Yes Last menstrual period: 03/30/25 Post menopausal: No Patient : No HPI HPI Iud removal: Details: Patient is here because her appointments got rescheduled several times for many different reasons including loss of insurance and then this provider was on medical leave. Patient has been struggling with losing weight for a long time and she had lost close to 60 lb in the past so she knows she can do it but then she gained some of the weight back. She had started again this fall and then regained some weight with Thanksgiving. She has resolved to do it again and get healthier she and her partner have been talking for a long time and they want to have a baby before she gets any older and the risks become greater because of that as well she was gestational diabetic could her 2nd but she managed it well and says it did not really impact her health much. She was overweight at the time as well. She is tearful during this visit discussing her continued efforts to lose weight she goes to the gym and does cardio for an hour every day before she goes to work she has used various methods to lose weight including keto in the past as well she knows what is healthy and what is u nhealthy for her and tends to choose fruits such as berries and she never fries her meets she either bakes or air fries them she loves vegetables. After much discussion she thinks that psychologically it will help her to remove the Mirena IUD today and she would consider using condoms until she is able to achieve more weight loss and feels she said a healthier place to conceive. I did tell her that she would be considered high-risk and she should initiate care at [facility] at the start of the . She apparently does not qualify for any of the GLP 1 medications and they are too expensive [id number]. [facility] Medical History History of hemorrhoids Constipation Anxiety disorder History of gestational diabetes Meralgia paresthetica of right side Chronic right sacroiliac joint pain Difficulty sleeping Plantar wart of right foot Encounter for screening laboratory testing for COVID-19 virus in asymptomatic patient Encounter for general adult medical examination with abnormal findings Morbid obesity Mild intermittent asthma Surgical History [place] teeth extracted Hx of hernia repair Family History Father Hx of diabetes mellitus Family hx of hypertension Mental health disorder Mother Hx of diabetes mellitus Hypothyroidism Mental health disorder Sister Hx of diabetes mellitus Hypothyroidism Maternal Grandfather Mental health disorder Maternal Grandmother Mental health disorder Social History Housing: House Alcohol intake: current Alcohol intake frequency: a few times a month Patient Tobacco Use Status: Never used Tobacco e-Cigarette/Vaping Use: Never Used service: No Current occupational status: employed Current occupational exposures/hazards: No Gender identity: Female Cognitive needs: No Hearing needs: No Vision needs: No Female Reproductive History Menstrual Age of Menarche: 14 Date of last menstrual period: 03/30/25 control method: progestin IUCD (Mirena ) Total pregnancies: 2 Full term: 2 Date of last pap smear: 04/18/24 (negative papsmear, negative hpv ) Physical Exam Vital Signs: Last Vital Signs BP 114/74 04/05/25 10:51 BMI result Body Mass Index 45.4 Const General: healthy appearing, comfortable, no acute distress, well developed and alert Nutritional Appearance: average body habitus Orientation/consciousness: patient oriented x3 Limitations: no limitations HEENT Head: Yes normocephalic Neck Neck: Yes normal visual inspection Chest Chest palpation & inspection: normal inspection of the chest Breast/axilla inspection: normal inspection of the breasts and normal inspection of the axillae Breast/axilla palpation: normal palpation of the breasts and normal palpation of the axillae Resp Effort & Inspection: normal respiratory effort GI Inspection: Yes normal to inspection, No Abdominal wall edema and No distended Palpation (GI): Soft to palpation and nontender 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 Bimanual exam was completely within normal limits with mobile nontender cervix uterus mobile nontender anteverted to midposition adnexa nontender fair tone with Kegel, General: Yes bladder normal to palpation External Female Exam: normal external appearance and normal appearance of the urethra Speculum Exam - Vagina: normal appearance of the vagina, normal palpation and normal vaginal discharge Speculum Exam - Cervix: normal appearance of the cervix, normal palpation and nontender Bimanual exam- vagina & uterus: normal bimanual exam, normal palpation, uterine size normal, bladder normal to palpation, consistency normal, normal palpation, uterine mobility normal, uterine shape normal, No Cervical tenderness present, non-tender and no cervical motion tenderness Bimanual Exam- Adnexa, other: normal adnexae, no masses, normal and No adnexal tenderness Neuro General: patient oriented x3 Office Procedures IUD Insert/Removal Details Details: Very lengthy discussion about her health her weight and risks of at this weight and also a with her age. She felt that removing it now would allow her to read double her efforts and she will use condoms until she achieves more of her goals. With patient consent speculum was placed Mirena strings were easily visible strings were grasped with ring forceps and when patient gave a cough the IUD was easily removed. [id number] Removal Procedure code (CPT) selection complete Assessment & Plan Assessment & Plan (1) Obesity, morbid, BMI 40.0-49.9: Code(s): E66.01 - Morbid (severe) obesity due to excess calories Category: Medical (2) Presence of 52 mg levonorgestrel-releasing intrauterine device (IUD): Code(s): Z97.5 - Presence of (intrauterine) contraceptive device Category: Social Hx (3) Encounter for preconception consultation: Code(s): Z31.69 - Encounter for other general counseling and advice on procreation Category: Medical (4) Patient desires : Code(s): Z31.9 - Encounter for procreative management, unspecified Category: Medical (5) History of gestational diabetes: Code(s): Z86.32 - Personal history of gestational diabetes Category: Medical (6) Encounter for IUD removal: Code(s): Z30.432 - Encounter for removal of intrauterine contraceptive device Category: Medical (7) Encounter for screening examination for sexually transmitted disease: Code(s): Z11.3 - Encounter for screening for infections with a predominantly sexual mode of transmission Category: Medical (8) Screening for malignant neoplasm of cervix: Code(s): Z12.4 - Encounter for screening for malignant neoplasm of cervix Category: Medical Plan Patient is here because her appointments got rescheduled several times for many different reasons including loss of insurance and then this provider was on medical leave. Patient has been struggling with losing weight for a long time and she had lost close to 60 lb in the past so she knows she can do it but then she gained some of the weight back. She had started again this fall and then regained some weight with Thanksgiving. She has resolved to do it again and get healthier she and her partner have been talking for a long time and they want to have a baby before she gets any older and the risks become greater because of that as well she was gestational diabetic could her 2nd but she managed it well and says it did not really impact her health much. She was overweight at the time as well. She is tearful during this visit discussing her continued efforts to lose weight she goes to the gym and does cardio for an hour every day before she goes to work she has used various methods to lose weight including keto in the past as well she knows what is healthy and what is unhealthy for her and tends to choose fruits such as berries and she never fries her meets she either bakes or air fries them she loves vegetables. After much discussion she thinks that psychologically it will help her to remove the Mirena IUD today and she would consider using condoms until she is able to achieve more weight loss and feels she said a healthier place to conceive. I did tell her that she would be considered high-risk and she should initiate care at [facility] at the start of the . Discussed return of fertility and signs and symptoms. Patient ascertained that she was 100% sure that she wanted the IUD removed after much discussion and thought about all the different factors involved, including risks of at both this age and also this weight, and during the exam the IUD was easily removed with 1 tug with a cough. Testing for STIs was done. Breast exam also done patient is to start on multivitamins discussed possible use of magnesium to help keep her regular. She does drink lots of water and she avoids unhealthy foods when she is putting forth her efforts. I did recommend she considers using condoms until she achieves much of her weight loss goal and she intends to read double her efforts, as she feels that she is dealing with the time issue as well because of her age and desire for conception. Detailed discussion about diet timing exercise and all of the extraneous factors that contribute and interfere with goals and efforts Orders: Orders CT NG by PCR Vag/Cerv Today Z11.3 - Encounter for screening for infections with a predominantly sexual mode of transmission AMB IUD Insertion/Removal - Patient Supply Today E66.01 - Morbid (severe) obesity due to excess calories, Z11.3 - Encounter for screening for infections with a predominantly sexual mode of transmission, Z12.4 - Encounter for screening for malignant neoplasm of cervix, Z30.430 - Encounter for insertion of intrauterine contraceptive device, Z30.432 - Encounter for removal of intrauterine contraceptive device, Z31.69 - Encounter for other general counseling and advice on procreation, Z31.9 - Encounter for procreative management, unspecified, Z86.32 - Personal history of gestational diabetes, Z97.5 - Presence of (intrauterine) contraceptive device Bacterial Vaginosis Panel Today Z11.3 - Encounter for screening for infections with a predominantly sexual mode of transmission Coding Level of Care Code Est Pt Level 3 (47762) Diagnoses Obesity, morbid, BMI 40.0-49.9 E66.01 Presence of 52 mg levonorgestrel-releasing intrauterine device (IUD) Z97.5 Encounter for preconception consultation Z31.69 Patient desires Z31.9 History of gestational diabetes Z86.32 Encounter for IUD removal Z30.432 Encounter for screening examination for sexually transmitted disease Z11.3 Screening for malignant neoplasm of cervix Z12.4 CPT Codes Details - CPT: 47579-KCJ Removal ([id number])
--- OUTSIDE RECORDS SUMMARY | 2025-04-05 10:14 | XMS_ITS | Encounter Summary ---
Author Organization [facility] Address [address] [place] [id number] Phone Care Team Providers Care Vice Chancellor Name Role Phone Unavailable Primary Care Provider Unavailabl e Encounter Details Date Type Department Care Team (Late st Contact Info) Description 12/03/2016 Conversion Encounter [facility] - [address] [id number] Social History Tobacco Use Types Packs/Day Years [...]
--- OUTSIDE RECORDS SUMMARY | 2025-04-05 10:14 | XMS_ITS | Clinical Summary ---
Author Organization [facility] Address [address] [place] [phone] Phone Care Team Providers Care Loom Cleaner Name Role Phone Unavailable Primary Care Provider [...]
[2025-04-05 10:51] VITALS: BP 114/74; BMI 45.4
== END 2025-04-05 10:21 | disposition home or self-care (01) ==
LOC: HO.HWSM 09:05
PROVIDERS: PCP Internal Medicine; Visit Provider Advanced Practice Midwife
DX: E66.01 Morbid (severe) obesity due to excess calories (principal); Z68.42 Body mass index [BMI] 45.0-49.9, adult; Z30.432 Encounter for removal of intrauterine contraceptive device; Z31.9 Encounter for procreative management, unspecified; Z86.32 Personal history of gestational diabetes; Z11.3 Encounter for screening for infections with a predominantly sexual mode of transmission; Z12.4 Encounter for screening for malignant neoplasm of cervix
CPT/HCPCS: 58301; 99213

== ENCOUNTER 2025-04-05 09:05 | Outpatient (REF) | payer OTHER, SELFPAY ==
[2025-04-06 01:56] LABS: Bacterial Vaginosis PCR NEGATIVE (Negative); Candida Group PCR NOT DETECTED (Not Detect); Candida glab krusei PCR NOT DETECTED (Not Detect); Trichomonas vaginalis PCR NOT DETECTED (Not Detect)
[2025-04-06 02:27] LABS: CT PCR NOT DETECTED (Not Detect.); NG PCR NOT DETECTED (Not Detect.)
== END 2025-04-05 09:06 | disposition home or self-care (01) ==
LOC: HO.LNP 09:05
PROVIDERS: PCP Internal Medicine; Visit Provider Advanced Practice Midwife
DX: Z30.432 Encounter for removal of intrauterine contraceptive device (principal); E66.01 Morbid (severe) obesity due to excess calories; Z31.69 Encounter for other general counseling and advice on procreation; Z31.9 Encounter for procreative management, unspecified; Z86.32 Personal history of gestational diabetes; Z20.2 Contact with and (suspected) exposure to infections with a predominantly sexual mode of transmission; Z12.4 Encounter for screening for malignant neoplasm of cervix
CPT/HCPCS: 58301; 81515; 87491; 87591